=== PATIENT | male | born 1935 | race Caucasian/White ===

== ENCOUNTER → 2022-03-06 13:29 | Outpatient (BNVA) | payer MEDICARE, OTHER, SELFPAY | PROVIDERS: Family Provider Internal Medicine; PCP Urology; Visit Provider Podiatrist Foot & Ankle Surgery | DX: I73.9 Peripheral vascular disease, unspecified (principal); L60.8 Other nail disorders; L60.3 Nail dystrophy; L84 Corns and callosities | CPT/HCPCS: 11056; 11721; 99204 ==

== ENCOUNTER → 2022-04-13 15:14 | Outpatient (BNVA) | payer MEDICARE, OTHER, SELFPAY | PROVIDERS: Family Provider Internal Medicine; PCP Urology; Visit Provider Podiatrist Foot & Ankle Surgery | DX: L60.8 Other nail disorders (principal); L60.3 Nail dystrophy; I73.9 Peripheral vascular disease, unspecified; L84 Corns and callosities | CPT/HCPCS: 11721 ==

== ENCOUNTER → 2022-07-06 15:56 | Outpatient (BNVA) | payer MEDICARE, OTHER, SELFPAY | PROVIDERS: Family Provider Internal Medicine; PCP Urology; Visit Provider Podiatrist Foot & Ankle Surgery | DX: I73.9 Peripheral vascular disease, unspecified (principal); L60.8 Other nail disorders; L60.3 Nail dystrophy; L84 Corns and callosities | CPT/HCPCS: 11056; 11721 ==

== ENCOUNTER 2022-08-25 16:14 | Outpatient (CLI) | payer MEDICARE, OTHER, SELFPAY ==
--- NOTE | 2022-08-25 16:24 | XRR_ITS ---
PROCEDURE INFORMATION: Exam: XR Bilateral Hips Exam date and time: 08/25/2022 4:26 PM Age: 87 years old Clinical indication: Hip pain; Bilateral; Prior surgery; Surgery type: Bilat hip surgery; Patient HX: PT fell 3 months ago; Additional info: Pain in right and left hip TECHNIQUE: Imaging protocol: Radiologic exam of the bilateral hips. Views: 2 views of hips with pelvis when performed. COMPARISON: No relevant prior studies available. FINDINGS: Bones/joints: Bilateral total hip arthroplasties noted in expected alignment. No signs of hardware loosening. No acute fracture. Soft tissues: Unremarkable. XR/XR hip BI 3-4V wo/w pel [id number] IMPRESSION: No acute findings.
== END 2022-08-25 16:15 | disposition home or self-care (01) ==
LOC: RAD 16:18
PROVIDERS: PCP Urology; Visit Provider Nurse Practitioner Family
DX: M25.552 Pain in left hip (principal)
CPT/HCPCS: 73522

== ENCOUNTER → 2022-10-04 10:14 | Outpatient (BNVA) | payer MEDICARE, OTHER, SELFPAY | PROVIDERS: PCP Urology; Visit Provider Nurse Practitioner Family | DX: L30.4 Erythema intertrigo (principal); Z85.828 Personal history of other malignant neoplasm of skin; L57.0 Actinic keratosis; L82.0 Inflamed seborrheic keratosis; D23.72 Other benign neoplasm of skin of left lower limb, including hip; Z87.891 Personal history of nicotine dependence; L81.4 Other melanin hyperpigmentation; L85.3 Xerosis cutis | CPT/HCPCS: 11056; 11102; 11721; 17000; 17003; 99213 ==

== ENCOUNTER → 2022-12-06 13:05 | Outpatient (BNVA) | payer MEDICARE, OTHER, SELFPAY | PROVIDERS: PCP Urology; Visit Provider Podiatrist Foot & Ankle Surgery | DX: L60.8 Other nail disorders (principal); L60.3 Nail dystrophy; I73.9 Peripheral vascular disease, unspecified; L84 Corns and callosities | CPT/HCPCS: 11056; 11721 ==

== ENCOUNTER → 2023-02-05 10:43 | Outpatient (BNVA) | payer MEDICARE, OTHER, SELFPAY | PROVIDERS: PCP Nurse Practitioner Family; Visit Provider Nurse Practitioner Family | DX: L30.4 Erythema intertrigo (principal); D23.72 Other benign neoplasm of skin of left lower limb, including hip; L81.4 Other melanin hyperpigmentation; L85.3 Xerosis cutis; L57.0 Actinic keratosis | CPT/HCPCS: 17000; 99214 ==

== ENCOUNTER → 2023-02-07 12:07 | Outpatient (BNVA) | payer MEDICARE, OTHER, SELFPAY | PROVIDERS: PCP Nurse Practitioner Family; Visit Provider Podiatrist Foot & Ankle Surgery | DX: L60.8 Other nail disorders (principal); L60.3 Nail dystrophy; I73.9 Peripheral vascular disease, unspecified; L84 Corns and callosities | CPT/HCPCS: 11056; 11721 ==

== ENCOUNTER → 2023-05-09 12:57 | Outpatient (BNVA) | payer MEDICARE, OTHER, SELFPAY | PROVIDERS: PCP Nurse Practitioner Family; Visit Provider Podiatrist Foot & Ankle Surgery | DX: L60.3 Nail dystrophy (principal); I73.9 Peripheral vascular disease, unspecified; L84 Corns and callosities; L60.8 Other nail disorders | CPT/HCPCS: 11056; 11721 ==

== ENCOUNTER → 2023-06-18 07:48 | Outpatient (BNVA) | payer MEDICARE, SELFPAY | PROVIDERS: PCP Nurse Practitioner Family; Visit Provider Nurse Practitioner Family | DX: Z85.828 Personal history of other malignant neoplasm of skin (principal); L30.4 Erythema intertrigo; L57.0 Actinic keratosis; D23.72 Other benign neoplasm of skin of left lower limb, including hip; D22.5 Melanocytic nevi of trunk | CPT/HCPCS: 17000; 99213 ==

== ENCOUNTER → 2023-07-18 14:22 | Outpatient (BNVA) | payer MEDICARE, OTHER, SELFPAY | PROVIDERS: PCP Nurse Practitioner Family; Visit Provider Podiatrist Foot & Ankle Surgery | DX: L60.8 Other nail disorders (principal); L60.3 Nail dystrophy; I73.9 Peripheral vascular disease, unspecified; L84 Corns and callosities | CPT/HCPCS: 11056; 11721 ==

== ENCOUNTER 2023-10-05 11:01 | Emergency (ER) | payer MEDICARE, OTHER, SELFPAY ==
[2023-10-05 11:08] VITALS: BP 137/75; PULSE 71; RESP 18; O2SAT 96
--- NOTE | 2023-10-05 11:14 | CT_ITS ---
WS: [id number] CT CERVICAL SPINE HISTORY: fall TECHNIQUE: Contiguous 2.0 mm axial imaging performed through the entire cervical spine. Sagittal and coronal reformats also performed. All CT scans at [facility] use at least one of these dose o ptimization techniques: automated exposure control; mA and/or kV adjustment per patient size (include s targeted exams where dose is matched to clinical indication); or iterative reconstruction. DLP: 1631.38 mGy.cm COMPARISON: None available. Posterior cervical alignment is normal. Osteophytic ridging around the vertebral bodies. Clawlike ost eophytes anteriorly beginning at C4-T2. Partial ankylosis C2-3 facet joint. Facet joints are normally aligned. No fractures. C2-C3: Facet joint arthropathy. Mild LEFT foraminal narrowing. C3-C4: Osteophytic ridging. Severe bilateral foraminal stenosis, RIGHT greater than LEFT and facet ar thritis. Moderate central stenosis. C4-C5: Osteophytic ridging with facet joint arthritis. Moderate central with severe foraminal stenosi s. C5-C6: Marked osteophytic ridging and facet arthritis. Severe central and bilateral foraminal stenosi s. C6-C7: Marked osteophytic ridging with severe central and bilateral foraminal stenosis. C7-T1: Normal. Soft tissues are normal. Lung apices are clear. CT/CT cervical spin wo con* [id number] IMPRESSION: 1. No acute cervical spine fracture. 2. Advanced cervical spondylosis. 3. Multilevel central and foraminal stenoses as described above. Severe stenos is at several levels.
--- NOTE | 2023-10-05 11:14 | CT_ITS ---
WS: [id number] CT HEAD NONCONTRAST HISTORY: fall TECHNIQUE: Contiguous axial imaging performed through the brain in 2.5 mm imaging. Bone and soft tiss ue windows. Sagittal and coronal reformats reviewed. All CT scans at [facility] use at least one of these dose optimization techniques: automated exposure control; mA and/or kV adjustment per pa tient size (includes targeted exams where dose is matched to clinical indication); or iterative recon struction. DLP: 1631.38 mGy.cm COMPARISON: None available. No acute intracranial hemorrhage, midline shift or mass effect. Moderate symmetric atrophy and mild small vessel ischemic disease. No prior infarct. Ventricles: Normal size with no hydrocephalus. No inferior displacement of the cerebellar tonsils. Posterior fossa is negative for acute blood produ cts. Paranasal sinuses: As visualized are clear. Mastoid air cells: Well pneumatized. Calvarium and scalp: No calvarial fracture. Moderate-sized lipoma posterior to the RIGHT upper cervic al spine at the level of the foramen magnum. Lipoma measures 2.9 x 4.4 cm. No large mass identified. There is a small scalp hematoma towards the superior RIGHT parietal vertex. CT/CT head wo con* [id number] IMPRESSION: 1. No acute intracranial hemorrhage or edema. 2. Moderate atrophy and mild small vessel ischemic disease. 3. Small posterior RIGHT parietal scalp hematoma. 4. Subcutaneous lipoma on the RIGHT at the level of the foramen magnum.
--- NOTE | 2023-10-05 11:19 | ED_ITS ---
HPI - Fall General: Chief Complaint: Fall Stated Complaint: fall Time Seen by Provider: 10/05/23 11:07 Source: patient and EMS Mode of arrival: EMS Limitations: no limitations History of Present Illness: 88-year-old male states that he had been walking and slipped and fell backwards onto concrete he did hit the back of his head on concrete denies any loss conscious he does have a posterior headache currently and a hematoma. States he had some increased falls but he denies feeling weak denies any lightheadedness he denies any chest pain. Denies any other injuries Associated symptoms-after fall: Denies abdominal pain, chest pain, headache(s) or neck pain Review of Systems Const: Denies: fever(s), chills, body aches or change in appetite ENMT: Denies: throat pain or dental pain Card: Denies: chest pain Resp: Denies: dyspnea GI: Denies: abdominal pain, nausea, vomiting or diarrhea Musc: Denies: neck pain or back pain Skin/Breast: Denies: rash Neuro: Denies: headache(s) Physical Exam Const: COMMON NORMALS: no acute distress, patient oriented x3 and healthy appearing HENMT: COMMON NORMALS: normocephalic HEAD & SCALP: normocephalic OTHER: Posterior scalp hematoma Eye: COMMON NORMALS: Equal, round and reactive pupils present and EOMs intact bilaterally PUPIL: Yes Equal, round and reactive pupils present Neck/C-Spine: COMMON NORMALS: full ROM and supple Chest: COMMONS NORMALS: normal inspection of the chest Resp: COMMON NORMALS: normal respiratory effort, No retractions, No use of accessory muscles and clear to auscultation bilaterally AUSCULTATION: clear to auscultation bilaterally Cardio: COMMON NORMALS: regular rate, regular rhythm and No murmurs present (Cardio) RATE: regular rate RHYTHM: regular rhythm GI: COMMON NORMALS: Normal to inspection, nondistended, normoactive bowel sounds present, Soft to palpation, non-tender and no masses PALPATION: Yes Soft to palpation Extremity: COMMON NORMALS: normal to inspection and full ROM Neuro: COMMON NORMALS: patient oriented x3, moves all extremities and no focal motor deficits Psych: COMMON NORMALS: mental status grossly normal, Normal thought process present and cooperative THOUGHT PROCESS: Normal thought process present Skin: COMMON NORMALS: no rashes or lesions noted and no wounds GENERAL SKIN EXAM: no rashes or lesions noted Course Vital Signs: Vital signs: Vital Signs Pulse Rate 71 10/05/23 11:08 Respiratory Rate 18 10/05/23 11:08 Blood Pressure 137/75 10/05/23 11:08 Pulse Oximetry 96 10/05/23 11:08 Oxygen Delivery Me thod Room Air 10/05/23 11:08 MDM - Fall Medical Decision Making Patient presents here with a closed head injury after a fall his imaging here is normal he is able to ambulate here did inform him that he needs to start ambulating with a cane or walker likely to prevent future falls he understands this he states he actually has a cane and walker at home just does not use them much. Is follow-up with PCP and return if worsening. Medical Records I reviewed the patient's medical records. Lab Data Radiology Impressions Cervical Spine CT 10/05/23 11:14 IMPRESSION: 1. No acute cervical spine fracture. 2. Advanced cervical spondylosis. 3. Multilevel central and foraminal stenoses as described above. Severe stenosis at several levels. Head CT 10/05/23 11:14 IMPRESSION: 1. No acute intracranial hemorrhage or edema. 2. Moderate atrophy and mild small vessel ischemic disease. 3. Small posterior RIGHT parietal scalp hematoma. 4. Subcutaneous lipoma on the RIGHT at the level of the foramen magnum. All radiology interpretation(s) finalized by discharge Discharge Plan Discharge Patient Disposition: Home Clinical Impression: Closed head injury, Fall Condition: Stable Prescriptions: No Action mupirocin 2 % ointment 1 applic topical BID Qty: 22 1RF Rx Instructions: apply to affected area twice daily until healed ezetimibe 10 mg tablet PO Discharge Orders: Discharge ED (Routine); Ordered 10/05/23 Ordered By: Suma Milan Referrals: Joanie Billings FNP [Referring] - 4-7 days Discharge Diet: Advance as tolerated Discharge Activity: Resume usual activity Patient Instructions: Head Injury (ED), Fall Prevention (ED) Coding Level of Care Code ED Machine Mover for Leonela Gonzalez
[2023-10-05 12:47] VITALS: BP 140/74; PULSE 59; O2SAT 98
== END 2023-10-05 12:49 | disposition home or self-care (01) ==
PROVIDERS: Emergency Provider Emergency Medicine; PCP Nurse Practitioner Family
DX: S00.03XA Contusion of scalp, initial encounter (principal); W01.0XXA Fall on same level from slipping, tripping and stumbling without subsequent striking against object, initial encounter
CPT/HCPCS: 70450; 72125; 99284

== ENCOUNTER → 2023-10-17 11:17 | Outpatient (BNVA) | payer MEDICARE, OTHER, SELFPAY | PROVIDERS: PCP Nurse Practitioner Family; Visit Provider Podiatrist Foot & Ankle Surgery | DX: E11.8 Type 2 diabetes mellitus with unspecified complications (principal); L60.8 Other nail disorders; L60.3 Nail dystrophy; I73.9 Peripheral vascular disease, unspecified; L84 Corns and callosities | CPT/HCPCS: 11056; 11721 ==

== ENCOUNTER → 2024-01-30 10:43 | Outpatient (BNVA) | payer MEDICARE, OTHER, SELFPAY | PROVIDERS: PCP Nurse Practitioner Family; Visit Provider Podiatrist Foot & Ankle Surgery | DX: L60.8 Other nail disorders (principal); E11.8 Type 2 diabetes mellitus with unspecified complications; L60.3 Nail dystrophy; I73.9 Peripheral vascular disease, unspecified; L84 Corns and callosities | CPT/HCPCS: 11056; 11721 ==

== ENCOUNTER → 2024-04-28 11:00 | Outpatient (BNVA) | payer MEDICARE, OTHER, SELFPAY | PROVIDERS: PCP Nurse Practitioner Family; Visit Provider Podiatrist Foot & Ankle Surgery | DX: E11.8 Type 2 diabetes mellitus with unspecified complications (principal); L60.8 Other nail disorders; L60.3 Nail dystrophy; I73.9 Peripheral vascular disease, unspecified; L84 Corns and callosities | CPT/HCPCS: 11056; 11721 ==

== ENCOUNTER → 2024-06-04 15:00 | Outpatient (BNVA) | payer MEDICARE, OTHER, SELFPAY | PROVIDERS: PCP Nurse Practitioner Family; Visit Provider Nurse Practitioner Family | DX: L30.4 Erythema intertrigo (principal); D23.72 Other benign neoplasm of skin of left lower limb, including hip; L81.4 Other melanin hyperpigmentation; L85.3 Xerosis cutis; Z08 Encounter for follow-up examination after completed treatment for malignant neoplasm; Z85.828 Personal history of other malignant neoplasm of skin; L57.0 Actinic keratosis | CPT/HCPCS: 17000; 99213 ==

== ENCOUNTER → 2024-08-04 11:01 | Outpatient (BNVA) | payer MEDICARE, OTHER, SELFPAY | PROVIDERS: PCP Nurse Practitioner Family; Visit Provider Podiatrist Foot & Ankle Surgery | DX: E11.8 Type 2 diabetes mellitus with unspecified complications (principal); L60.8 Other nail disorders; L84 Corns and callosities; L60.3 Nail dystrophy; I73.9 Peripheral vascular disease, unspecified | CPT/HCPCS: 11056; 11721 ==

== ENCOUNTER 2024-09-11 06:57 | Emergency (ER) | payer OTHER, MEDICARE, SELFPAY ==
--- NOTE | 2024-09-11 07:01 | XR_ITS ---
WS: [id number] Right shoulder, 3 views, 09/11/2024 Clinical Data: trauma Comparison: Right shoulder, 08/23/1999 Findings: No fractures or dislocations are seen. The AC joint shows mild osteoarthritis. There is osteoarthritis of the right glenohumeral joint.. The adjacent right clavicle, right scapula and ribs are normal. The soft tissues are unremarkable. 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
[2024-09-11 07:48] VITALS: BP 146/61; PULSE 74; RESP 18; TEMP 36.7; O2SAT 96; BMI 27.1
[2024-09-11 08:11] VITALS: BP 145/75; O2SAT 98
--- NOTE | 2024-09-11 08:21 | W.ED.EXTPRO ---
HPI - Extremity Problem General: Chief complaint: Extremity Injury, Upper Stated complaint: fall/right shoulder pain Time Seen by Provider: 09/11/24 06:58 History of Present Illness: 81-year-old male presents emergency room complaining of right shoulder pain began after he slipped and fell on some water he did not strike his head there is no other injury. He is able to move the elbow and the wrist without pain he complains of shoulder pain with any movement at the shoulder is not able to pecan picker anything of any significant weight or hold with his arm extended. He denies any chest pain or shortness of breath Associated symptoms: Deny chest pain, fever(s) or rash Related Data Home Medications ?Medication ?Instructions ?Recorded ?Confirmed ezetimibe 10 mg tablet tab PO 03/06/22 08/04/24 Previous Rx's ?Medication ?Instructions ?Recorded mupirocin 2 % topical ointment 1 applic topical BID #22 grams 06/19/22 diclofenac sodium 75 mg 75 mg PO Q12H PRN pain #20 tabs 09/11/24 tablet,delayed release Allergies Allergy/AdvReac Type Severity Reaction Status Date / Time atorvastatin (From Lipitor) Allergy Unknown Verified 08/04/24 09:17 Review of Systems Const: Denies: fever(s) or chills Card: Denies: chest pain Resp: Denies: dyspnea GI: Denies: abdominal pain : Denies: dysuria, urinary frequency or urinary urgency Musc: Reports: joint pain; Denies: neck pain or back pain Skin/Breast: Denies: rash PFSH ED PFSH: Social History Smoking and tobacco/nicotine status: never used tobacco/nicotine Physical Exam Const: COMMON NORMALS: no acute distress GENERAL APPEARANCE: cooperative and comfortable ORIENTATION/CONSCIOUSNESS: Yes awake, Yes oriented to person, Yes oriented to place and Yes oriented to time HENMT: COMMON NORMALS: normocephalic, atraumatic and hearing grossly normal bilaterally HEAD & SCALP: normocephalic and atraumatic Resp: COMMON NORMALS: normal respiratory effort, No retractions, No use of accessory muscles and clear to auscultation bilaterally AUSCULTATION: clear to auscultation bilaterally Cardio: COMMON NORMALS: regular rate, regular rhythm and No murmurs present (Cardio) RATE: regular rate RHYTHM: regular rhythm GI: COMMON NORMALS: Soft to palpation and No hepatosplenomegaly present AUSCULTATION: Yes normoactive bowel sounds PALPATION: Yes Soft to palpation, No Tenderness to palpation present (GI), No Guarding due to palpation present (GI) and Yes No hepatosplenomegaly present Extremity: COMMON NORMALS: normal to inspection, capillary refill normal, no clubbing, cyanosis or edema, no calf tenderness and no pedal edema OTHER: Positive impingement sign neurovascular the right arm is intact no pain with range of motion of the shoulder or the wrist. Pain reproducible with attempted range of motion of the shoulder mildly positive impingement sign pain with abduction and extension Neuro: SENSORIUM/ORIENTATION: Yes oriented to person, Yes oriented to place and Yes oriented to time Skin: COMMON NORMALS: no rashes or lesions noted GENERAL SKIN EXAM: no rashes or lesions noted Course Vital Signs: Vital signs: Vital Signs Temperature 98.1 F 09/11/24 07:48 Pulse Rate 65 09/11/24 08:55 Respiratory Rate 18 09/11/24 07:48 Blood Pressure 154/64 09/11/24 08:55 Pulse Oximetry 92 09/11/24 08:55 Oxygen Delivery Me thod Room Air 09/11/24 08:11 MDM - Extremity (Nontraumatic) Medical Decision Making Shoulder sprain he could have a rotator cuff impairment however he is in a movement without abduction I do not think he has a traumatic rotator cuff tear at this point suspect more partial or possible just sprain. 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 All radiology interpretation(s) finalized by discharge Discharge Plan Discharge Patient Disposition: Home Clinical Impression: Sprain of right shoulder Condition: Stable Prescriptions: New diclofenac sodium 75 mg tablet,delayed release (DR/EC) 75 mg PO Q12H PRN (Reason: pain) Qty: 20 0RF No Action mupirocin 2 % ointment 1 applic topical BID Qty: 22 1RF Rx Instructions: apply to affected area twice daily until healed ezetimibe 10 mg tablet PO Discharge Orders: Discharge ED (Routine); Ordered 09/11/24 Ordered By: Donny Lyons Referrals: Linda Celis FNP [Primary Care Provider] Discharge Diet: Usual diet Discharge Activity: Limit activity as instructed Patient Instructions: Opioid Safety, Pain Management Activity Restrictions/Additional Instructions: Thank you for choosing [facility] for your healthcare needs today. It is very important that you follow up as instructed or that you return to the Emergency Department should you have concerns or if your condition changes or worsens in any way. You were seen in the emergency room with complaints of right shoulder pain after a fall x-ray does not show any acute fracture. Recommend use of diclofenac as needed also use the arm sling case loader operator will make arrangements for you to follow-up with orthopedic clinic. Print Language: Ugandan Coding Level of Care Code ED Breakfast Host for Leonela Gonzalez
[2024-09-11] MEDS: ketorolac 30 mg/mL INJ IVP (08:49)
[2024-09-11 08:55] VITALS: BP 154/64; PULSE 65; O2SAT 92
--- NOTE | 2024-09-11 11:37 | DCPLANNER ---
messaged ortho for er f/u
== END 2024-09-11 08:56 | disposition home or self-care (01) ==
PROVIDERS: Emergency Provider Family Medicine; PCP Nurse Practitioner Family
DX: S43.401A Unspecified sprain of right shoulder joint, initial encounter (principal); W19.XXXA Unspecified fall, initial encounter
CPT/HCPCS: 73030; 96374; 99284; J1885

== ENCOUNTER → 2024-11-03 10:53 | Outpatient (BNVA) | payer MEDICARE, SELFPAY | PROVIDERS: PCP Nurse Practitioner Family; Visit Provider Podiatrist Foot & Ankle Surgery | DX: E11.8 Type 2 diabetes mellitus with unspecified complications (principal); L60.3 Nail dystrophy; L84 Corns and callosities; L60.8 Other nail disorders; I73.9 Peripheral vascular disease, unspecified | CPT/HCPCS: 11056; 11721 ==

== ENCOUNTER 2025-01-12 11:48 | Emergency (ER) | payer OTHER, SELFPAY ==
--- OUTSIDE RECORDS SUMMARY | 2024-10-01 04:30 | XMS_ITS | Encounter Summary ---
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 This section includes the names of all active insurance providers for the patient. Insurance Provider Type of Coverage Plan Name Start of Policy Coverage End of Policy Coverage Group Number Member ID Insurance Provider's Telephone Number Policy Holguin's Name Patient's Relationship to Policy Holguin [facility] (WNR) MEDICARE ADVANTAGE [facility] (WNR) May 14, 2023 [id number] Williams ROLON PATIENT MEDICARE (WNR) MEDICARE (M) PART A Jun 14, 2001 PART A [id number] [phone] Williams ROLON PATIENT MEDICARE (WNR) MEDICARE (M) PART B Jun 14, 2001 PART B [id number] Williams ROLON PATIENT Selected Encounter This section includes the information on record at [place] for the Encounter. Date/Time Encounter Type Encounter Description Reason Provider Source October 01, 2024 09:30 AM Outpatient Encounter PRIMARY CARE/MEDICINE ICD-10-CM Z00.00 Encntr for general adult medical exam w/o abnormal findings RAFFY MAYORGA E Encounter Template Text not used by [place] Assessments - Encounter Diagnoses This section includes the primary and secondary diagnoses documented for the Encounter. Date/Time Primary/Secondary Diagnosis Diagnosis Name Provider Source Oct 15, 2024 09:12 PM PRIMARY Encntr for general adult medical exam w/o abnormal findings MAYORGARAFFY [place] [facility] Oct 15, 2024 09:12 PM SECONDARY Hyperlipidemia, unspecified RAFFY MAYORGAS [place] [facility] Oct 15, 2024 09:12 PM SECONDARY Low back pain, unspecified RAFFY MAYORGAS [place] [facility] Oct 15, 2024 09:12 PM SECONDARY Other abnormalities of gait and mobility RAFFY MAYORGAS [place] [facility] Oct 15, 2024 09:12 PM SECONDARY Prediabetes MAYORGARAFFY [facility] Plan of Treatment: Future Appointments (+ 6 months) and Future Tests (+/- 45 days) The Plan of Treatment section includes future care activities for the patient [facility] This section includes future appointments and future orders which are active, pending or scheduled. Future Appointments This section includes appointments that were scheduled to occur 6 months from the date of the Encounter, up to a maximum of 20 appointments. The data comes from all [place] treatment facilities. Appointment Date/Time Appointment Type Appointme nt Facility Name Oct 20, 2024 10:15 AM AMBULATORY - MEDICINE [facility] Oct 29, 2024 02:00 PM AMBULATORY - MEDICINE [facility] Dec 25, 2024 10:15 AM [facility] Lab Results: +/- 30 days of the encounter This section includes the Chemistry and Hematology Lab Results on record with [place] for the patient. Radiology Reports and Pathology Reports are provided separately, in subsequent sections. Lab Results This section contains the Chemistry/Hematology Results that were resulted 30 days before or 30 daysafter the date of the Encounter. Date/Time Source Result Type Result - Unit Interpretation Reference Range Specimen Type Comment October 01, 2024 10:14 AM [facility] CBC BLOOD Specimen Type: BLOOD No comment entered. Ordering Provider: PAPA MAYORGA Report Released Date/Time: October 01, 2024 09:06 AM Reporting Lab: [facility] [place] [facility] [address] [place] [address] Performing Lab: [facility] [address] [place] [address] WBC 7.2 10*3/uL 3.6-11.2 RBC 4.90 10*6/uL 4.10-5.70 HGB 13.7 g/dL 13.1-16.8 HCT 42.8 38.2-48.4 MCV 87.3 fL 80.0-100.0 MCH 28.0 pg 27.0-34.0 MCHC 32.0 g/dL L 33.0-36.0 PLT 380 10*3/uL 150-400 MPV 10.7 fL 7.5-11.2 RDW 14.8 11.8-15.1 LYMPHOCYTES, AUTO % 20.8 MONOCYTES, AUTO % 10.6 NEUTROPHILS, AUTO % 66.4 EOSINOPHILS, AUTO % 1.1 BASOPHILS, AUTO % 0.8 LYMPHOCYTES, ABSOLUTE 1.49 10*3/uL 0.77- 4.50 MONOCYTES, ABSOLUTE 0.76 10*3/uL 0.19-0. 8 NEUTROPHILS, ABSOLUTE 4.74 10*3/uL 2.10- 8.00 EOSINOPHILS, ABSOLUTE 0.08 10*3/uL 0.00- 0.60 BASOPHILS, ABSOLUTE 0.06 10*3/uL 0.00-0. 20 IMMATURE GRANS, AUTO % 0.3 IMMATURE GRANS, AUTO ABS 0.02 10*3/uL 0. 00-0.05 October 01, 2024 10:14 AM [facility] COMPREHENSIVE METABOLIC PANEL PLASMA Specimen Type: PLASMA No comment entered. Ordering Provider: PAPA MAYORGA Report Released Date/Time: October 01, 2024 09:06 AM Reporting Lab: [facility] [facility] [address] [place] [address] Performing Lab: [facility] [facility] [address] [place] [address] CREATININE 0.85 mg/dL 0.7-1.3 UREA NITROGEN 18 mg/dL 9-25 GLUCOSE 105 mg/dL H 72-99 SODIUM 140 meq/L 136-145 POTASSIUM 4.3 meq/L 3.5-5 CHLORIDE 106 meq/L 98-107 CARBON DIOXIDE 25 meq/L 22-31 CALCIUM 9.5 mg/dL 8.4-10.4 PROTEIN 7.1 g/dL 6-8.6 ALBUMIN 4.3 g/dL 3.4-5 TOTAL BILIRUBIN 0.6 mg/dL 0.2-1.2 ALKALINE PHOSPHATASE 73 U/L 40-150 AST/SGOT 26 U/L 5-34 ALT/SGPT 16 U/L 8-40 EGFR (CKD-EPI 2020) 84 October 01, 2024 10:14 AM [facility] B12 SERUM Specimen Type: SERUM No comment entered. Ordering Provider: PAPA MAYORGA Report Released Date/Time: October 01, 2024 09:06 AM Reporting Lab: [place] [facility] [address] [place] [address] Performing Lab: [place] [facility] [address] [place] [address] B12 521 pg/mL 213-816 October 01, 2024 10:14 AM [facility] FOLATE (PB) SERUM Specimen Typ e: SERUM No comment entered. Ordering Provider: PAPA MAYORGA Report Released Date/Time: October 01, 2024 09:06 AM Reporting Lab: [place] [facility] [address] [place] [address] Performing Lab: [place] [facility] [address] [place] [address] FOLATE (PB) 12.6 ng/mL 7-20 October 01, 2024 10:14 AM [facility] HGA1C BLOOD Specimen Type: BLOOD No comment entered. Ordering Provider: PAPA MAYORGA Report Released Date/Time: October 01, 2024 09:06 AM Reporting Lab: [place] [facility] [address] [place] [address] Performing Lab: [place] [facility] [address] [place] [address] HGA1C 6.6 H 4.0-6.0 October 01, 2024 10:14 AM [facility] CHOLESTEROL PANEL (PB) PLASMA Specimen Type: P LASMA No comment entered. Ordering Provider: PAPA MAYORGA Report Released Date/Time: October 01, 2024 09:06 AM Reporting Lab: [place] [facility] [address] [place] [address] Performing Lab: [place] [facility] [address] [place] [address] CHOLESTEROL 247 mg/dL H 0-200 TRIGLYCERIDE 89 mg/dL 0-150 CALCULATED LDL 146.2 mg/dL HDL(New) 83.0 mg/dL H >40 HDL % OF TOTAL CHOLESTEROL (PB) 33.6 >25 October 01, 2024 10:14 AM [facility] VITAMIN D, 25-HYDROXY SERUM Specimen Type: SE RUM No comment entered. Ordering Provider: PAPA MAYORGA Report Released Date/Time: October 01, 2024 09:06 AM Reporting Lab: [place] [facility] [address] [place] [address] Performing Lab: [place] [facility] [address] [place] [address] VITAMIN D, 25-HYDROXY 30.3 ng/mL 30-96 October 01, 2024 10:14 AM [facility] TSH (MA-PB) SERUM Specimen Typ e: SERUM No comment entered. Ordering Provider: PAPA MAYORGA Report Released Date/Time: October 01, 2024 09:06 AM Reporting Lab: [place] [facility] [address] [place] [address] Performing Lab: [place] [facility] [address] [place] [address] TSH 2.132 u[IU]/mL 0.47-5 Vital Signs: All taken on the encounter date This section contains inpatient and outpatient Vital Signs collected on the date of the Encounter. Date/Time Temperature Pulse Blood Pressure Respiratory Rate SP02 Pain Height Weight Body Mass Index Source October 01, 2024 09:36 AM 71 133/78 97 [facility] October 01, 2024 09:24 AM 75 172/77 16 97 0 71.0 187.0 26 [facility] Social History: Smoking Status (Most current) and Tobacco Use (All prior to encounter date) This section includes the most current, and the historical, smoking and tobacco- related health factors from the [place] facility where the Encounter took place. Current Smoking Status This section includes the most current smoking, or tobacco-related health factor, from the [place] facility where the Encounter took place. Date/Time Current Smoking Status Comment Jeanette dow October 01, 2024 09:30 AM VA-TOBACCO USE FORMER CIGARETTES [facility] Tobacco Use History This section includes a history of the smoking, or tobacco-related health factors, that were collected on or before the date of the Encounter. The data comes from the [place] facility where the Encounter took place. Date/Time Smoking Status/Tobacco Use Comment F acdelano October 01, 2024 09:30 AM VA-TOBACCO USE FORMER CIGARETTES [facility] October 03, 2023 11:00 AM VA-TOBACCO FORMER USER [facility] October 03, 2023 11:00 AM VA-TOBACCO QUIT 15 YRS OR MORE [facility] Feb 03, 2015 02:04 PM QUIT TOBACCO >7 YEARS AGO [facility] Encounter Notes: All associated encounter notes This section contains the clinical notes associated to the Encounter. Date/Time Encounter Note(s) Provider Source Oct 17, 2024 03:15 PM TELEPHONE ENCOUNTE R NOTE: LOCAL TITLE: TELEPHONE NOTE STANDARD TITLE: TELEPHONE ENCOUNTER NOTE DATE OF NOTE: OCT 17, 2024@15:15 ENTRY DATE: OCT 17, 2024@15:15:43 AUTHOR: THEA VICK EXP COSIGNER: URGENCY: STATUS: COMPLETED Called and reviewed Test Result letter. voiced understanding. [place] would like his Cholesterol Medicine from the [place]. /kadi/ THEA VICK LPN Signed: 10/17/2024 15:17 Receipt Acknowledged By: 10/18/2024 15:20 /kadi/ Papa Mayorga [facility], [facility] THEA VICK [facility] October 01, 2024 09:47 AM PRIMARY CARE PROGR ESS NOTE: LOCAL TITLE: PRIMARY CARE CLINIC PROGRESS NOTE PB STANDARD TITLE: PRIMARY CARE PROGRESS NOTE DATE OF NOTE: OCTOBER 01, 2024@09:47 ENTRY DATE: OCTOBER 01, 2024@09:47:10 AUTHOR: PAPA MAYORGAER: URGENCY: STATUS: COMPLETED PROVIDER ASSESSMENT DATE & TIME:September@09:47 CHIEF COMPLAINT: Annual physical and labs. HISTORY OF PRESENT ILLNESS: is being seen for his annual physical and labs. needs large brief depends ordered. has been having some gait imbalance and needs some physical therapy ordered. He would like some medication for his arthritis and we will order some celebrex. He denies any home needs. He has not had any hospitalizations. 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 Indication: FOR OSTEOARTHRITIS Active Non-VA Medications Status 1) Non-VA FINASTERIDE 5MG TAB 5MG BY MOUTH ONCE A DAY ACTIVE 2) Non-VA TAMSULOSIN HCL 0.4MG CAP 0.4MG BY MOUTH ONCE A DAY ACTIVE 3 Total Medications REVIEW OF SYSTEMS: HEENT: No Headache. No blurry vision, vision loss, eye pain, red eyes, or foreign body. No runnynose, congestion, or nose bleed. No hearing loss, ringing in the ears, or vertigo. No sore throat or dental pain. RESPIRATORY: No cough, SOA, wheezing, or sputum production. CARDIOVASCULAR: No chest pain, palpitations, tachycardia, PND, or orthopnea. GI: No abdominal pain, nausea, vomiting, diarrhea, constipation, melena, or hematochezia. : No dysuria, hematuria, urinary frequency, weak stream, or post-void dribbling. MUSCULOSKELETAL: chronic joint pain. SKIN: No rash, lesions, or infection PSYCH: No Depression or Anxiety. Not suicidal. PHYSICAL ASSESSMENT: VITAL SIGNS Pulse: 71 (10/01/2024 09:36) Blood Pressure: 133/78 (10/01/2024 09:36) Respiratory Rate: 16 (10/01/2024 09:24) Temperature: 97.5 F [36.4 C] (10/03/2023 11:25) Weight: 187.0 lb [84.82 kg] (10/01/2024 09:24) Height: 71.0 in [180.3 cm] (10/01/2024 09:24) Pain: 0 (10/01/2024 09:24) HEENT:PERRL, EOMI, Fundi benign, TM's clear, Pharynx not red and without exudate, tonsils normal size. NECK: Supple, no lymhadenopathy, thyroid normal. CARDIAC: Regular rate and rhythm without murmur. No edema. RESPIRATORY: CTA, BEBS GI: Abdomen soft,with ABS, no HSM, no guarding or rebound. MUSCULOSKELETAL:Chronic diffuse joint pain with wide based gait. SKIN: [place] without rash or lesions. NEUROLOGICAL: The [place] is alert and oriented without distress. Affect appropriate. IMPRESSION: Encounter for General Adult Medical Exam Osteoarthritis-chronic Low Back Pain-chronic Hyperlipidemia-chronic Prediabetes-current PLAN: Increase water intake. Continue current medications. Depends ordered. Physical therapy ordered. Fall precautions discussed. RTC in one year or sooner if needed. Patient is advised this primary care clinic has open access and he can make a same day appointment anytime a problem/concern arises. Patient further advised he can be seen on a walk-in basis as needed. Patient is provided clinic contact information. Medications reviewed and reconciled. Discussed diet and exercise as relevant to patient conditions. Treatment plan as noted above and the After Visit Summary was reviewed with [place]; opportunity provided to report concerns and ask question regarding aspects of care or treatment or services; concurrence reached and verbalized understanding. Please refer to addendum or follow up lab letter for plan of care/changes related to lab/test results not available at conclusion of appointment, if any. Discussed with patient that in the event of community imaging / testing being ordered in the future, once the imaging / testing has been completed, please notify PACT of within 1 week by a [facility] PACT member; this is due to intermittent lapses in notification of imaging completion within CPRS. All questions answered; agrees to plan of care. Follow up as listed above, annually, and as needed. Keep all completion at outside facility if not called with results appointments. Medications Reconciled. Time spent 30 minutes. /kadi/ [facility] Signed: 10/15/2024 21:11 [facility]GA [facility] October 01, 2024 09:15 AM PRIMARY CARE NURSI NG NOTE: LOCAL TITLE: PRIMARY CARE NURSING PROGRESS NOTE (TEXT) NURSING P STANDARD TITLE: PRIMARY CARE NURSING NOTE DATE OF NOTE: OCTOBER 01, 2024@09:15 ENTRY DATE: OCTOBER 01, 2024@09:15:58 AUTHOR: THEA VICK COSIGNER: URGENCY: STATUS: COMPLETED Established Patient SRIRAM ROLON IS A 89 YEAR OLD MALE BEING SEEN IN CLINIC OCTOBER 01, 2024. == == REASON FOR VISIT: here today for annual appt with provider. Are you receiving care any where other than the [facility]? Yes, List: [facility] HEALTH AND SURGICAL HISTORY: Does patient report using home oxygen? No CURRENT ACTIVE MEDICATIONS FOR REVIEW: If the list for review does not include a component, then it was not applicable to this patient. Allergies/ADRs (Tool #5) FACILITY ALLERGY/ADR -------- No Remote Allergy/ADR Data available for this patient [facility] Med. Reconciliation (Tool #1) INCLUDED IN THIS LIST: Alphabetical list of active outpatient prescriptions dispensed from this VA (local) and dispensed from another VA or [facility] facility (remote) as well as inpatient orders (local pending and active), local clinic medications, locally documented non-VA medications, and local prescriptions that have or been discontinued in the past 90 days. Non-VA Meds Last Documented On: Feb 03, 2015 NOTE The display of VA prescriptions dispensed from another [place] or [facility] facility (remote) is limited to active outpatient prescription entries matched to National Drug File at the originating site and may not include some items such as investigational drugs, compounds, etc. NOT INCLUDED IN THIS LIST: Medications self-entered by the patient into personal health records (i.e. [employer]) are NOT included in this list. Non-VA medications documented outside this [place], remote inpatient orders (regardless of status) and remote clinic medications are NOT included in this list. The patient and provider must always discuss medications the patient is taking, regardless of where the medication was dispensed or obtained. OUTPT CELECOXIB 100MG CAP (Status = Active) TAKE ONE CAPSULE BY MOUTH ONCE A DAY FOR OSTEOARTHRITIS TAKE WITH FOOD. Rx# [id number] Last Released: 10/10/23 Qty/Days Supply: Rx Expiration Date: 10/06/24 Refills Remainin Indication: FOR OSTEOARTHRITIS Non-VA FINASTERIDE 5MG TAB TAKE ONE TABLET BY MOUTH ONCE A DAY Non-VA medication recommended by VA provider. Medication prescribed by Non-VA provider. Non-VA TAMSULOSIN HCL 0.4MG CAP TAKE 1 CAPSULE BY MOUTH ONCE A DAY Non-VA medication recommended by VA provider. Medication prescribed by Non-VA provider. SUPPLIES PHARMACY TERMS AND POSSIBLE PATIENT ACTIONS INPT = [place] inpatient order IV = [place] intravenous medication OUTPT = [place] outpatient prescription PHARMACY POSSIBLE PATIENT TERMS EXPLANATION ACTIONS -------- ----- ACTIVE A prescription that can be If you have refills, filled at the local [place] pharmacy. you may request a refill of this prescription from your VA pharmacy. CLINIC A medication you received during If you have questions a visit to a [place] clinic or about this medication emergency department. contact your [place] healthcare team. DISCONTINUED A prescription your provider has Contact your VA stopped. It is no longer healthcare team if you available to be sent to you or need more of this picked up at the [place] pharmacy medication. window. A prescription which is too old Contact your VA to fill. This does not refer to healthcare team if you the expiration date of the need more of this medication in the container. medication. NON-VA A medication that came from If this medication someplace other than a VA information is pharmacy. This may be a incorrect or out of prescription from either the VA date, please tell your or non VA providers that was VA healthcare team. filled outside the VA. Or, it may be an uayf-aiu-rldbeqi (OTC), herbal, dietary supplements or sample medication. ON HOLD An active prescription that will Contact your VA not be filled until pharmacy pharmacy when you need resolves the issue. more of this medication. PARKED An active prescription that will Contact your VA not be filled until the patient pharmacy when you need requests it. this medication. PENDING This prescription order has been If you have been sent to the pharmacy for review instructed to start and is not ready yet. this medication now, contact your VA pharmacy. SUSPENDED An active prescription that is Contact your [place] not scheduled to be filled yet. pharmacy if you need You should receive it before this medication now. you run out. Medication list reviewed with Patient Patient/Caregiver reports taking medications as ordered. IS PATIENT TAKING ANY OVER THE COUNTER MEDICATIONS, SUCH VITAMINS OR HERBAL SUPPLEMENTS, INCLUDING ANY MEDICATIONS PRESCRIBED BY ANOTHER PHYSICIAN? No Does patient have any new allergies to report since last visit? NO VITALS: TEMPERATURE: 97.5 F [36.4 C] (10/03/2023 11:25) BP: 144/76 (10/03/2023 11:) RESP: 18 (10/03/2023:) PULSE: 67 (10/03/2023:) HT: 71.0 in [180.3 cm] (10/03/2023 11:15) WT: 193.3 lb [87.68 kg] (10/03/2023:) BMI: 27.0 PAIN ASSESSMENT: (Most Recent Pain Score in Vitals Package: 0 (04/12/2021 13:18) ) The patient indicated that they and their close contacts have not traveled outside of the [place] in the past 21 days. The patient reports the following symptoms: No symptoms present The patient is not immunocompromised. The patient does not report having a history of Multi Drug Resistant Organism (MDRO) within the last five years. The patient does not report having been exposed to measles, chickenpox, or zoster in last 30 days. Patient reports no pain at this visit. Pain Score = 0. STRESS: Thank you for your service. Now let us serve you. At the , we strive to provide you with exceptional health care that improves your health and well-being. Are you feeling sad, empty, or depressed? No Do you need to talk about things in your life that worry you or cause you stress? No Do you need to talk about personal problems, family problems, alcohol use, drug use, or mental or emotional illness? No SUICIDE SCREENING: The patient was asked, Over the past two weeks, how often have you been bothered by thoughts that you would be better off or of hurting yourself in some way? Not At All SPIRITUAL ASSESSMENT: Are there tenriism practices or spiritual concerns you want the hot mill tin roller, your physician, and other health care team members to immediately know about? No Patient advised to call the clinic for any concerns, questions, or symptoms. Patient and/or caregiver verbalized understanding of plan of care. Frail/Elderly Screen: ADL Screen - Dorsey Index of [place] in Activities of Daily Living Bathing: (3 Points) Receives no assistance (gets in and out of tub by self, if tub is usual means of bathing) Dressing: (3 Points) Gets clothes and gets completely dressed without assistance. Toileting: (3 Points) Goes to toilet room , cleans self, and arranges clothes without assistance (may use object for support such as cane, walker, or wheelchair, and may manage own night bedpan or commode, emptying same next morning) Transferring: (3 Points) Moves in and out of bed and in and out of chair without assistance (may be using object for support, such as cane or walker) Continence: (2 Points) Has occasional accidents or urination or bowels Feeding: (3 Points) Feeds self without assistance Total Score: 17 Points 18 = High (patient independent) 6 = Low (patient very dependent) IADL Screen - [place] Instrumental Activities of Daily Living Scale Ability to use telephone: (1 point) Operates Telephone on own initiative; looks up and dials numbers. Shopping: (0 points) Shops independently for small purchases. Food preparation: (0 points) Prepares adequate meals if supplied with ingredients. Housekeeping: (1 points) Needs help with all home maintenance tasks. Laundry: (1 point) Launders small items, rinses socks, stockings, etc. Mode of transportation: (1 point) Travels independently on public transportation or drives own car. Responsibility for own medications: (1 point) Is responsible for taking medications in correct dosages at correct times. Ability to handle finances: (1 point) Manages financial matters independently (budgets, writes checks, pays rent and bills, goes to bank); collects and keeps track of income. Total score: 6 points 8 = High function, independent 0 = Low function, dependent Falls Screen: At least one fall with injury requiring treatment (in ED or clinic visit) within the last 12 months. Incontinence Screen: YES - Incontinence is a problem for this patient. Is urinary incontinence NEW for this patient? NO - Incontinence is NOT a new problem. What is the current treatment? Frequent bathroom visit. Will speak with non va provider about medications. Suicide Screen - V: C-SSRS Screening [place] Suicide Severity Rating Scale (C-SSRS) screener 1. Over the past month, have you wished you were or wished you could go to sleep and not wake up? No 2. Over the past month, have you had any actual thoughts of killing yourself? No 3. Over the past month, have you been thinking about how you might do this? Response not required due to responses to other questions. 4. Over the past month, have you had these thoughts and had some intention of acting on them? Response not required due to responses to other questions. 5. Over the past month, have you started to work out or worked out the details of how to kill yourself? Response not required due to responses to other questions. 6. If yes, at any time in the past month did you intend to carry out this plan? Response not required due to responses to other questions. 7. In your lifetime, have you ever done anything, started to do anything, or prepared to do anything to end your life (for example, collected pills, obtained a gun, gave away valuables, went to the roof but didn't jump)? No 8. If YES, was this within the past 3 months? Response not required due to responses to other questions. FALL RISK OP PB: MARINA FALL RISK ASSESSMENT Have you experienced any falls within the last 12 months: 10 = Yes Secondary Dx: 5 = Yes Secondary Dx Ambulatory Aid: 5 = Crutches/Walker/Cane Gait/Transferrin = Weak Mental status: 0 = Oriented to own ability Medications: 5 = High risk meds TOTAL SCORE: 30 Score 30 or higher - patient IS at risk for falls. The following actions taken: Family/career and technology education teacher advised to stay with patient during appointment. Patient had safety/home/falls education at this encounter. Fall Documentation Yes - Patient experienced a fall within the last year. Type of fall that occurred: At least one fall with injury requiring treatment (any fall for which a patient seeks medical attention, i.e., a visit (usually to clinic or ED)) Sexual Orientation - CP,L,N,P,PH,PS,S,U: The patient thinks of their sexual orientation as: Straight or Heterosexual RHS Screen - VS: RHS Screen Session Format: Face to Face Environmental Check Screening was not completed at this time due to: Another adult present Alcohol Use Screen (AUDIT-C) - V: Alcohol Screen: SCREEN FOR ALCOHOL (AUDIT-C) An alcohol screening test (AUDIT-C) was negative (score=0). 1. How often did you have a drink containing alcohol in the past year? Consider a drink to be a 12 ounce can or bottle of regular beer, 8 ounces of malt liquor, a 5 ounce glass of table wine, or a 1.5 ounce shot of liquor (like scotch, gin, or vodka). Never 2. How many drinks containing alcohol did you have on a typical day when you were drinking in the past year? Response not required due to responses to other questions. 3. How often did you have six or more drinks on one occasion in the past year? Response not required due to responses to other questions. Tobacco Use Screening - AT,DE,L,M,N,P,PH,PS,RT,S,U: The patient is a former cigarette smoker. The patient has never used other types of tobacco. Depression Screening - V: Perform PHQ-2 A PHQ-2 screen was performed. The score was 0 which is a negative screen for depression. Over the past two weeks, how often have you been bothered by the following problems? 1. Little interest or pleasure in doing things Not at all 2. Feeling down, depressed, or hopeless Not at all Advanced Directive Screen/Hand Cigar Making Supervisor: ADVANCE DIRECTIVE SCREENING: I asked if the patient has an advance directive, and determined that: Patient has an Advance Directive. Patient does not wish to make any changes to the Advance Directive at this time. ADVANCE DIRECTIVE NOTIFICATION I provided the patient with written notification about advance directives. Level of understanding: PTSD Screening - V: PC-PTSD-5 A PTSD screening test (PC-PTSD-5) was negative (score=0). IN THE PAST MONTH, have you ever had any experience that was so frightening, horrible or traumatic. For example: A serious accident or fire a physical or sexual assault or abuse An earthquake or flood A war Seeing someone be killed or seriously injured Having a loved one through homicide or suicide 1. Have you ever experienced this kind of event? YES 2. Had nightmares about the event(s) or thought about the event(s) when you did not want to? NO 3. Tried hard not to think about the event(s) or went out of your way to avoid situations that reminded you of the event(s)? NO 4. Been constantly on guard, watchful, or easily startled? NO 5. Ewing numb or detached from people, activities, or your surroundings? NO 6. Ewing guilty or unable to stop blaming yourself or others for the event(s) or any problems the event(s) may have caused? NO Pain Assessment: - PAIN ASSESSMENT: .. Patient reports no pain at this visit. Pain Score = 0. Patient's self identified pain goal: 0 [facility] DIGITAL DIVIDE CAPABILITY REMINDER: Patient is not interested in [facility] at this time. 'S RIGHT TO DECLINE STATEMENT understands they have the right to decline the use of Telehealth Technology at any time without adverse affects on their continued access to healthcare. [facility] - PHP MAP: PERSONAL HEALTH PLAN INVENTORY & MAP [place]'s Response: Health, Family /es/ THEA VICK LPN Signed: 10/01/2024 09:35 THEA VICK [facility]
--- OUTSIDE RECORDS SUMMARY | 2025-01-12 06:56 | XMS_ITS | Continuity of Care Document ---
Author Name [facility] Organization [facility] Care Team Providers Care Night Assistant Name Role Phone [facility] Unavailable Unavailable Problems Combined list of problems from [facility] facilities. It does not include entries that were removed or entered in error. 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 [facility] Hyperlipidemia ([facility] [id number]) Active Condition [facility] Low Back Pain ([facility] [id number]) Active Condition [facility] Osteoarthritis of hip Active Condition [place] [facility] Prediabetes Active Condition [facility] Diagnosis: ICD-10-CM Z71.89 Other specified counseling Active Diagnosis [facility] Diagnosis: ICD-10-CM Z00.00 Encntr for general adult medical exam w/o abnormal findings Active Diagnosis [facility] Medications Combined list of outpatient medications from [facility] and [facility] facilities.Medications provided include 1) outpatient medications from the last 15 months, and 2) patient-reported medications. Medication Details Route Status Patient Instructions Prescription Expires Prescription Number Last Dispense Date Ordering Provider Order Date Order Qty Source CELECOXIB 100MG CAP TAKE ONE CAPSULE BY MOUTH ONCE A DAY FOR OSTEOART HRITIS TAKE WITH FOOD. ORAL ACTIVE 10/02/2025 [id number] Marivel MAYORGA R 2024 90 [facility] EZETIMIBE 10MG TAB TAKE ONE-HALF TABLET BY MOUTH ONCE A DAY FOR HIGH CHOLESTE ROL ORAL ACTIVE 10/19/2025 [id number] Marivel MAYORGA R 2024 45 [facility] FINASTERIDE 5MG TAB TAKE ONE TABLET BY MOUTH ONCE A DAY ORAL ACTIVE ELIAZAR DARLING 2014 [facility] TAMSULOSIN HCL 0.4MG CAP TAKE 1 CAPSULE BY MOUTH ONCE A DAY ORAL ACTIVE ANITHANEVAEHELIAZAR 2014 [facility] Allergies, Adverse Reactions, Alerts Combined list of allergies from [facility] and [facility] facilities. It does not include entries that were removed or entered in error. Substance Category Reaction Severity Reaction type Status Date Reported Comments Source LIPITOR Propensity to adverse reactions to drug (finding) Muscle pain active 5 [facility] Immunizations Combined list of available immunizations from the Department of Defense and Veterans Affairs facilities. Immunization Series Date Given Administered By Site Reaction Lot Number CVX Code Drug Manager Paper Status Comments Source INFLUENZA, ADJUVANTED, TRIVALENT, PF 4 2023 168 complet ed HISTORICA L INFORMATI ON - FROM OTHER [facility], [facility] INFLUENZA, UNSPECIFIED FORMULATION 2023 88 complet ed HISTORICA L INFORMATI ON - FROM PATIENT'S WRITTEN RECORD, [facility] RSV, RECOMBINANT, PROTEIN SUBUNIT RSVPREF, ADJUVANT RECONSTITUTED , 0.5 ML, PF 1 2022 303 complet ed HISTORICA L INFORMATI ON - FROM OTHER [facility], [facility] N COVID-19 (MODERNA), MRNA, LNP-S, PF, 50 MCG/0.5 ML (AGES 12+ YEARS) 3 2022 312 complet ed HISTORICA L INFORMATI ON - FROM OTHER [facility], [facility] N INFLUENZA, INJECTABLE, QUADRIVALENT 3 2022 158 complet ed HISTORICA L INFORMATI ON - FROM OTHER REGISTRY, [facility] INFLUENZA, UNSPECIFIED FORMULATION 2022 88 complet ed HISTORICA L INFORMATI ON - FROM PATIENT'S WRITTEN RECORD, [facility] INFLUENZA, SEASONAL, INJECTABLE 2 2021 141 complet ed HISTORICA L INFORMATI ON - FROM OTHER [facility], [facility] N INFLUENZA, UNSPECIFIED FORMULATION 2021 88 complet ed [facility] N COVID-19 (MODERNA), MRNA, LNP-S, PF, 100 MCG OR 50 MCG DOSE 3 2020 207 complet ed MOD; [id number]; 2 [facility] TDAP 1 2020 115 complet ed HISTORICA L INFORMATI ON - FROM OTHER REGISTRY, [facility] N ZOSTER RECOMBINANT 1 2020 187 complet ed HISTORICA L INFORMATI ON - FROM OTHER REGISTRY, [facility] N INFLUENZA, INJECTABLE, QUADRIVALENT, PRESERVATIVE FREE 2020 150 complet ed [facility] COVID-19 (MODERNA), MRNA, LNP-S, PF, 100 MCG OR 50 MCG DOSE 2 2020 207 complet ed [facility] COVID-19 (MODERNA), MRNA, LNP-S, PF, 100 MCG OR 50 MCG DOSE 1 2020 207 complet ed [facility] INFLUENZA, SEASONAL, INJECTABLE 1 2019 141 complet ed HISTORICA L INFORMATI ON - FROM OTHER REGISTRY, [facility] N INFLUENZA, INJECTABLE, QUADRIVALENT, PRESERVATIVE FREE 2017 150 complet ed [facility] INFLUENZA, SEASONAL, INJECTABLE, PRESERVATIVE FREE 2016 140 complet ed Left Deltoid, [facility] INFLUENZA, SEASONAL, INJECTABLE, PRESERVATIVE FREE 2015 140 complet ed 02, Partner: Neeraj . Administe red by: Neeraj Clinician (NPI=Not Provided) . Partner 0 Lot#: [id number] Mfr: [facility] INFLUENZA, SEASONAL, INJECTABLE, PRESERVATIVE FREE 2014 140 complet ed [facility] PNEUMOCOCCAL CONJUGATE PCV 13 2014 133 complet ed [facility] TDAP 2010 115 complet ed [facility] INFLUENZA, UNSPECIFIED FORMULATION 2000 DAMIÁN SAWANT 88 complet ed [place] [facility] Results Combined list of recent chemistry, hematology and other laboratory results from Department of Defense and Veterans Affairs, ranging from 15 months to all on record, depending upon the facility. Order Name Results Value Reference Range Date Interpretation Specimen Comments Source CBC LEUKOCYTES [#/VOLUME] IN BLOOD BY AUTOMATED COUNT 7.2 10*3/u L 3.6 - 11.2 10/01 Specimen Type: BLOOD No comment entered. Ordering Provider: Marivel MAYORGA Report Released Date/Time : October 01, 2024 09:06 AM Reporting Lab: [place] [facility] [address] [place] [address] Performin g Lab: [place] [facility] [address] [place] [address] [facility] CBC ERYTHROCYTES [#/VOLUME] IN BLOOD BY AUTOMATED COUNT 4.90 10*6/u L 4.10 - 5.70 10/01 Specimen Type: BLOOD No comment entered. Ordering Provider: Marivel MAYORGA Report Released Date/Time : October 01, 2024 09:06 AM Reporting Lab: [place] [facility] [address] [place] [address] Performin g Lab: [place] [facility] [address] [place] [address] [facility] CBC HEMOGLOBIN [MASS/VOLUME] IN BLOOD 13.7 g/dL 13.1 - 16.8 10/01 Specimen Type: BLOOD No comment entered. Ordering Provider: Marivel MAYORGA Report Released Date/Time : October 01, 2024 09:06 AM Reporting Lab: [place] [facility] [address] [place] [address] Performin g Lab: [place] [facility] [address] [place] [address] [facility] CBC HEMATOCRIT [VOLUME FRACTION] OF BLOOD 42.8 38.2 - 48.4 10/01 Specimen Type: BLOOD No comment entered. Ordering Provider: Marivel MAYORGA Report Released Date/Time : October 01, 2024 09:06 AM Reporting Lab: [place] [facility] [address] [place] [address] Performin g Lab: [place] [facility] [address] [place] [address] [facility] CBC MCV [ENTITIC VOLUME] BY AUTOMATED COUNT 87.3 fL 80.0 - 100.0 10/01 Specimen Type: BLOOD No comment entered. Ordering Provider: Marivel MAYORGA R Report Released Date/Time : October 01, 2024 09:06 AM Reporting Lab: [place] [facility] [address] [place] [address] 8 Performin g Lab: [place] [facility] [address] [place] [address] [facility] CBC MCH [ENTITIC MASS] BY AUTOMATED COUNT 28.0 pg 27.0 - 34.0 10/01 Specimen Type: BLOOD No comment entered. Ordering Provider: Marivel MAYORGA Report Released Date/Time : October 01, 2024 09:06 AM Reporting Lab: [place] [facility] [address] [place] [address] 8 Performin g Lab: [place] [facility] [address] [place] [address] 8 [facility] CBC MCHC [MASS/VOLUME] BY AUTOMATED COUNT 32.0 g/dL 33.0 - 36.0 10/01 L Specimen Type: BLOOD No comment entered. Ordering Provider: Marivel MAYORGA R Report Released Date/Time : October 01, 2024 09:06 AM Reporting Lab: [place] [facility] [address] [place] [address] Performin g Lab: [place] [facility] [address] [place] [address] 8 [facility] CBC PLATELETS [#/VOLUME] IN BLOOD BY AUTOMATED COUNT 380 10*3/u L 150 - 400 10/01 Specimen Type: BLOOD No comment entered. Ordering Provider: Marivel MAYORGA R Report Released Date/Time : October 01, 2024 09:06 AM Reporting Lab: [place] [facility] [address] [place] [address] 8 Performin g Lab: [place] [facility] [address] [place] [address] [facility] CBC PLATELET MEAN VOLUME [ENTITIC VOLUME] IN BLOOD BY AUTOMATED COUNT 10.7 fL 7.5 - 11.2 10/01 Specimen Type: BLOOD No comment entered. Ordering Provider: Marivel MAYORGA Report Released Date/Time : October 01, 2024 09:06 AM Reporting Lab: [place] [facility] [address] [place] [address] 8 Performin g Lab: [place] [facility] [address] [place] [address] 8 [facility] CBC ERYTHROCYTE DISTRIBUTION WIDTH [RATIO] BY AUTOMATED COUNT 14.8 11.8 - 15.1 10/01 Specimen Type: BLOOD No comment entered. Ordering Provider: Marivel MAYORGA Report Released Date/Time : October 01, 2024 09:06 AM Reporting Lab: [place] [facility] [address] [place] [address] 8 Performin g Lab: [place] [facility] [address] [place] [address] [facility] CBC LYMPHOCYTES/1 00 LEUKOCYTES IN BLOOD BY AUTOMATED COUNT 20.8 10/01 Specimen Type: BLOOD No comment entered. Ordering Provider: Marivel MAYORGA Report Released Date/Time : October 01, 2024 09:06 AM Reporting Lab: [place] [facility] [address] [place] [address] 8 Performin g Lab: [place] [facility] [address] [place] [address] [facility] CBC MONOCYTES/100 LEUKOCYTES IN BLOOD BY AUTOMATED COUNT 10.6 10/01 Specimen Type: BLOOD No comment entered. Ordering Provider: Marivel MAYORGA Report Released Date/Time : October 01, 2024 09:06 AM Reporting Lab: [place] [facility] [address] [place] [address] 8 Performin g Lab: [place] [facility] [address] [place] [address] [facility] CBC NEUTROPHILS/1 00 LEUKOCYTES IN BLOOD BY AUTOMATED COUNT 66.4 10/01 Specimen Type: BLOOD No comment entered. Ordering Provider: Marivel MAYORGA Report Released Date/Time : October 01, 2024 09:06 AM Reporting Lab: [place] [facility] [address] [place] [address] 8 Performin g Lab: [place] [facility] [address] [place] [address] 8 [facility] CBC EOSINOPHILS/1 00 LEUKOCYTES IN BLOOD BY AUTOMATED COUNT 1.1 10/01 Specimen Type: BLOOD No comment entered. Ordering Provider: Marivel MAYORGA Report Released Date/Time : October 01, 2024 09:06 AM Reporting Lab: [place] [facility] [address] [place] [address] 8 Performin g Lab: [place] [facility] [address] [place] [address] 8 [facility] CBC BASOPHILS/100 LEUKOCYTES IN BLOOD BY AUTOMATED COUNT 0.8 10/01 Specimen Type: BLOOD No comment entered. Ordering Provider: Marivel MAYORGA Report Released Date/Time : October 01, 2024 09:06 AM Reporting Lab: [place] [facility] [address] [place] [address] 8 Performin g Lab: [place] [facility] [address] [place] [address] 8 [facility] CBC LYMPHOCYTES [#/VOLUME] IN BLOOD BY AUTOMATED COUNT 1.49 10*3/u L 0.77 - 4.50 10/01 Specimen Type: BLOOD No comment entered. Ordering Provider: Marivel MAYORGA Report Released Date/Time : October 01, 2024 09:06 AM Reporting Lab: [place] [facility] [address] [place] [address] 8 Performin g Lab: [place] [facility] [address] [place] [address] 8 [facility] CBC MONOCYTES [#/VOLUME] IN BLOOD BY AUTOMATED COUNT 0.76 10*3/u L 0.19 - 0.8 10/01 Specimen Type: BLOOD No comment entered. Ordering Provider: Marivel MAYORGA Report Released Date/Time : October 01, 2024 09:06 AM Reporting Lab: [place] [facility] [address] [place] [address] 8 Performin g Lab: [place] [facility] [address] [place] [address] 8 [facility] CBC NEUTROPHILS [#/VOLUME] IN BLOOD BY AUTOMATED COUNT 4.74 10*3/u L 2.10 - 8.00 10/01 Specimen Type: BLOOD No comment entered. Ordering Provider: Marivel MAYORGA Report Released Date/Time : October 01, 2024 09:06 AM Reporting Lab: [place] [facility] [address] [place] [address] 8 Performin g Lab: [place] [facility] [address] [place] [address] 8 [facility] CBC EOSINOPHILS [#/VOLUME] IN BLOOD BY AUTOMATED COUNT 0.08 10*3/u L 0.00 - 0.60 10/01 Specimen Type: BLOOD No comment entered. Ordering Provider: Marivel MAYORGA Report Released Date/Time : October 01, 2024 09:06 AM Reporting Lab: [place] [facility] [address] [place] [address] 8 Performin g Lab: [place] [facility] [address] [place] [address] 8 [facility] CBC BASOPHILS [#/VOLUME] IN BLOOD BY AUTOMATED COUNT 0.06 10*3/u L 0.00 - 0.20 10/01 Specimen Type: BLOOD No comment entered. Ordering Provider: Marivel MAYORGA Report Released Date/Time : October 01, 2024 09:06 AM Reporting Lab: [place] [facility] [address] [place] [address] 8 Performin g Lab: [place] [facility] [address] [place] [address] [facility] CBC IMMATURE GRANULOCYTES/ 100 LEUKOCYTES IN BLOOD BY AUTOMATED COUNT 0.3 10/01 Specimen Type: BLOOD No comment entered. Ordering Provider: Marivel MAYORGA Report Released Date/Time : October 01, 2024 09:06 AM Reporting Lab: [place] [facility] [address] [place] [address] 8 Performin g Lab: [place] [facility] [address] [place] [address] 8 [facility] CBC IMMATURE GRANULOCYTES [#/VOLUME] IN BLOOD BY AUTOMATED COUNT 0.02 10*3/u L 0.00 - 0.05 10/01 Specimen Type: BLOOD No comment entered. Ordering Provider: Marivel MAYORGA Report Released Date/Time : October 01, 2024 09:06 AM Reporting Lab: [place] [facility] [address] [place] [address] Performin g Lab: [place] [facility] [address] [place] [address] [facility] COMPREHENSI VE METABOLIC PANEL CREATININE [MASS/VOLUME] IN SERUM OR PLASMA 0.85 mg/dL 0.7 - 1.3 10/01 Specimen Type: PLASMA No comment entered. Ordering Provider: Marivel MAYORGA Report Released Date/Time : October 01, 2024 09:06 AM Reporting Lab: [place] [facility] [address] [place] [address] Performin g Lab: [place] [facility] [address] [place] [address] [facility] COMPREHENSI VE METABOLIC PANEL UREA NITROGEN [MASS/VOLUME] IN SERUM OR PLASMA 18 mg/dL 9 - 25 10/01 Specimen Type: PLASMA No comment entered. Ordering Provider: Marivel MAYORGA Report Released Date/Time : October 01, 2024 09:06 AM Reporting Lab: [place] [facility] [address] [place] [address] Performin g Lab: [place] [facility] [address] [place] [address] [facility] COMPREHENSI VE METABOLIC PANEL GLUCOSE [MASS/VOLUME] IN SERUM OR PLASMA 105 mg/dL 72 - 99 10/01 H Specimen Type: PLASMA No comment entered. Ordering Provider: Marivel MAYORGA R Report Released Date/Time : October 01, 2024 09:06 AM Reporting Lab: [place] [facility] [address] [place] [address] Performin g Lab: [place] [facility] [address] [place] [address] [facility] COMPREHENSI VE METABOLIC PANEL SODIUM [MOLES/VOLUME ] IN SERUM OR PLASMA 140 meq/L 136 - 145 10/01 Specimen Type: PLASMA No comment entered. Ordering Provider: Marivel MAYORGA R Report Released Date/Time : October 01, 2024 09:06 AM Reporting Lab: [place] [facility] [address] [place] [address] 8 Performin g Lab: [place] [facility] [address] [place] [address] [facility] COMPREHENSI VE METABOLIC PANEL POTASSIUM [MOLES/VOLUME ] IN SERUM OR PLASMA 4.3 meq/L 3.5 - 5 10/01 Specimen Type: PLASMA No comment entered. Ordering Provider: Marivel MAYORGA Report Released Date/Time : October 01, 2024 09:06 AM Reporting Lab: [place] [facility] [address] [place] [address] Performin g Lab: [place] [facility] [address] [place] [address] 8 [facility] COMPREHENSI VE METABOLIC PANEL CHLORIDE [MOLES/VOLUME ] IN SERUM OR PLASMA 106 meq/L 98 - 107 10/01 Specimen Type: PLASMA No comment entered. Ordering Provider: Marivel MAYORGA R Report Released Date/Time : October 01, 2024 09:06 AM Reporting Lab: [place] [facility] [address] [place] [address] Performin g Lab: [place] [facility] [address] [place] [address] [facility] COMPREHENSI VE METABOLIC PANEL CARBON DIOXIDE, TOTAL [MOLES/VOLUME ] IN SERUM OR PLASMA 25 meq/L 22 - 31 10/01 Specimen Type: PLASMA No comment entered. Ordering Provider: Marivel MAYORGA R Report Released Date/Time : October 01, 2024 09:06 AM Reporting Lab: [place] [facility] [address] [place] [address] 8 Performin g Lab: [place] [facility] [address] [place] [address] 8 [facility] COMPREHENSI VE METABOLIC PANEL CALCIUM [MASS/VOLUME] IN SERUM OR PLASMA 9.5 mg/dL 8.4 - 10.4 10/01 Specimen Type: PLASMA No comment entered. Ordering Provider: Marivel MAYORGA Report Released Date/Time : October 01, 2024 09:06 AM Reporting Lab: [place] [facility] [address] [place] [address] Performin g Lab: [place] [facility] [address] [place] [address] 8 [facility] COMPREHENSI VE METABOLIC PANEL PROTEIN [MASS/VOLUME] IN SERUM OR PLASMA 7.1 g/dL 6 - 8.6 10/01 Specimen Type: PLASMA No comment entered. Ordering Provider: Marivel MAYORGA Report Released Date/Time : October 01, 2024 09:06 AM Reporting Lab: [place] [facility] [address] [place] [address] Performin g Lab: [place] [facility] [address] [place] [address] [facility] COMPREHENSI VE METABOLIC PANEL ALBUMIN [MASS/VOLUME] IN SERUM OR PLASMA 4.3 g/dL 3.4 - 5 10/01 Specimen Type: PLASMA No comment entered. Ordering Provider: Marivel MAYORGA R Report Released Date/Time : October 01, 2024 09:06 AM Reporting Lab: [place] [facility] [address] [place] [address] Performin g Lab: [place] [facility] [address] [place] [address] 8 [facility] COMPREHENSI VE METABOLIC PANEL BILIRUBIN.TOT AL [MASS/VOLUME] IN SERUM OR PLASMA 0.6 mg/dL 0.2 - 1.2 10/01 Specimen Type: PLASMA No comment entered. Ordering Provider: Marivel MAYORGA R Report Released Date/Time : October 01, 2024 09:06 AM Reporting Lab: [place] [facility] [address] [place] [address] Performin g Lab: [place] [facility] [address] [place] [address] [facility] COMPREHENSI VE METABOLIC PANEL ALKALINE PHOSPHATASE [ENZYMATIC ACTIVITY/VOLU ME] IN SERUM OR PLASMA 73 U/L 40 - 150 10/01 Specimen Type: PLASMA No comment entered. Ordering Provider: Marivel MAYORGA R Report Released Date/Time : October 01, 2024 09:06 AM Reporting Lab: [place] [facility] [address] [place] [address] Performin g Lab: [place] [facility] [address] [place] [address] [facility] COMPREHENSI VE METABOLIC PANEL ASPARTATE AMINOTRANSFER ASE [ENZYMATIC ACTIVITY/VOLU ME] IN SERUM OR PLASMA 26 U/L 5 - 34 10/01 Specimen Type: PLASMA No comment entered. Ordering Provider: Marivel MAYORGA Report Released Date/Time : October 01, 2024 09:06 AM Reporting Lab: [place] [facility] [address] [place] [address] Performin g Lab: [place] [facility] [address] [place] [address] [facility] COMPREHENSI VE METABOLIC PANEL ALANINE AMINOTRANSFER ASE [ENZYMATIC ACTIVITY/VOLU ME] IN SERUM OR PLASMA 16 U/L 8 - 40 10/01 Specimen Type: PLASMA No comment entered. Ordering Provider: Marivel MAYORGA R Report Released Date/Time : October 01, 2024 09:06 AM Reporting Lab: [place] [facility] [address] [place] [address] Performin g Lab: [place] [facility] [address] [place] [address] [facility] COMPREHENSI VE METABOLIC PANEL GLOMERULAR FILTRATION RATE/1.73 SQ M.PREDICTED [VOLUME RATE/AREA] IN SERUM, PLASMA OR BLOOD BY CREATININE-BA SED FORMULA (CKD-EPI 2020) 84 10/01 Specimen Type: PLASMA No comment entered. Ordering Provider: Marivel MAYORGA R Report Released Date/Time : October 01, 2024 09:06 AM Reporting Lab: [place] [facility] [address] [place] [address] Performin g Lab: [place] [facility] [address] [place] [address] [facility] B12 COBALAMIN (VITAMIN B12) [MASS/VOLUME] IN SERUM OR PLASMA 521 pg/mL 213 - 816 10/01 Specimen Type: SERUM No comment entered. Ordering Provider: Marivel MAYORGA Report Released Date/Time : October 01, 2024 09:06 AM Reporting Lab: [place] [facility] [address] [place] [address] Performin g Lab: [place] [facility] [address] [place] [address] [facility] FOLATE (PB) FOLATE [MASS/VOLUME] IN SERUM OR PLASMA 12.6 ng/mL 7 - 20 10/01 Specimen Type: SERUM No comment entered. Ordering Provider: Marivel MAYORGA Report Released Date/Time : October 01, 2024 09:06 AM Reporting Lab: [place] [facility] [address] [place] [address] Performin g Lab[place] [facility] [address] [place] [address] [facility] HGA1C HEMOGLOBIN A1C/HEMOGLOBI N.TOTAL IN BLOOD 6.6 4.0 - 6.0 10/01 H Specimen Type: BLOOD No comment entered. Ordering Provider: Marivel MAYORGA Report Released Date/Time : October 01, 2024 09:06 AM Reporting Lab: [place] [facility] [address] [place] [address] Performin g Lab: [place] [facility] [address] [place] [address] [facility] CHOLESTEROL PANEL (PB) CHOLESTEROL [MASS/VOLUME] IN SERUM OR PLASMA 247 mg/dL 0 - 200 10/01 H Specimen Type: PLASMA No comment entered. Ordering Provider: Marivel MAYORGA Report Released Date/Time : October 01, 2024 09:06 AM Reporting Lab: [place] [facility] [address] [place] [address] Performin g Lab: [place] [facility] [address] [place] [address] [facility] CHOLESTEROL PANEL (PB) TRIGLYCERIDE [MASS/VOLUME] IN SERUM OR PLASMA 89 mg/dL 0 - 150 10/01 Specimen Type: PLASMA No comment entered. Ordering Provider: Marivel MAYORGA R Report Released Date/Time : October 01, 2024 09:06 AM Reporting Lab: [place] [facility] [address] [place] [address] Performin g Lab: [place] [facility] [address] [place] [address] [facility] CHOLESTEROL PANEL (PB) CHOLESTEROL IN LDL [MASS/VOLUME] IN SERUM OR PLASMA BY CALCULATION 146.2 mg/dL 10/01 Specimen Type: PLASMA No comment entered. Ordering Provider: Marivel MAYORGA R Report Released Date/Time : October 01, 2024 09:06 AM Reporting Lab: [place] [facility] [address] [place] [address] Performin g Lab: [place] [facility] [address] [place] [address] [facility] CHOLESTEROL PANEL (PB) CHOLESTEROL IN HDL [MASS/VOLUME] IN SERUM OR PLASMA 83.0 mg/dL 40 10/01 H Specimen Type: PLASMA No comment entered. Ordering Provider: Marivel MAYORGA R Report Released Date/Time : October 01, 2024 09:06 AM Reporting Lab: [place] [facility] [address] [place] [address] Performin g Lab: [place] [facility] [address] [place] [address] [facility] CHOLESTEROL PANEL (PB) CHOLESTEROL IN HDL/CHOLESTER OL.TOTAL [MASS RATIO] IN SERUM OR PLASMA 33.6 25 10/01 Specimen Type: PLASMA No comment entered. Ordering Provider: Marivel MAYORGA R Report Released Date/Time : October 01, 2024 09:06 AM Reporting Lab: [place] [facility] [address] [place] [address] Performin g Lab: [place] [facility] [address] [place] [address] [facility] VITAMIN D, 25-HYDROXY 25-HYDROXYVIT PERSON D3 [MASS/VOLUME] IN SERUM OR PLASMA 30.3 ng/mL 30 - 96 10/01 Specimen Type: SERUM No comment entered. Ordering Provider: Marivel MAYORGA Report Released Date/Time : October 01, 2024 09:06 AM Reporting Lab: [place] [facility] [address] [place] [address] Performin g Lab: [place] [facility] [address] [place] [address] [facility] TSH (MA-PB) THYROTROPIN [UNITS/VOLUME ] IN SERUM OR PLASMA 2.132 u[IU]/ mL 0.47 - 5 10/01 Specimen Type: SERUM No comment entered. Ordering Provider: Marivel MAYORGA Report Released Date/Time : October 01, 2024 09:06 AM Reporting Lab: [place] [facility] [address] [place] [address] Performin g Lab: [place] [facility] [address] [place] [address] [facility] HGA1C HEMOGLOBIN A1C/HEMOGLOBI N.TOTAL IN BLOOD 6.4 4.0 - 6.0 10/02 H Specimen Type: BLOOD No comment entered. Ordering Provider: Marivel MAOYRGA Report Released Date/Time : October 03, 2023 11:44 AM Reporting Lab: [place] [facility] [address] [place] [address] Performin g Lab: [place] [facility] [address] [place] [address] [facility] TSH (MA-PB) THYROTROPIN [UNITS/VOLUME ] IN SERUM OR PLASMA 1.593 u[IU]/ mL 0.47 - 5 10/02 Specimen Type: SERUM No comment entered. Ordering Provider: Marivel MAYORGA Report Released Date/Time : October 03, 2023 11:44 AM Reporting Lab: [place] [facility] [address] [place] [address] Performin g Lab: [place] [facility] [address] [place] [address] [facility] Vital Signs Combined list of inpatient and outpatient Vital Signs from [facility] and [facility], ranging from 12 months to all on record, depending upon the facility. Vital Sign Value Date Comments Source SYSTOLIC BLOOD PRESSURE 172 10/01/2024 09:24:00 [facility] DIASTOLIC BLOOD PRESSURE 77 10/01/2024 09:24:00 [facility] PULSE OXIMETRY 97 10/01/2024 09:24:00 [facility] WEIGHT 187.0 10/01/2024 09:24:00 [facility] BMI 26 kg/m2 10/01/2024 09:24:00 [facility] PAIN 0 10/01/2024 09:24:00 [facility] HEIGHT 71.0 10/01/2024 09:24:00 [facility] PULSE 75 10/01/2024 09:24:00 [facility] RESPIRATION 16 10/01/2024 09:24:00 [facility] Encounters Combined list of: 1) Encounters from Department of [facility] facilities going backup to the last 18 months, not all [place] inpatient encounters are included; 2) Encounters from the [facility] facilities going backup to 280 months. Location Location Details Encounter Type Encounter Number Reason For Visit Attending Provider ADM Date DC Date Status Disposition Source [facility] Outpatient Encounter [id number] Diagnos is: ICD-10- CM Z00.00 Encntr for general adult medical exam w/o abnorma l finding s MAYORGA,CA THERINE R 10/02 [facility] Outpatient Encounter [id number] 10/03 [facility] Outpatient Encounter [id number] 10/09 [facility] Outpatient Encounter [id number] 02/21 [facility] N [facility] Outpatient Encounter [id number] 03/05 [facility] Outpatient Encounter [id number] LAUREN WATTS 09/12 [facility] Outpatient Encounter [id number] TERENCE MAYORGA 10/01 [facility] Outpatient Encounter [id number] Diagnos is: ICD-10- CM Z00.00 Encntr for general adult medical exam w/o abnorma l finding s TERENCE MAYORGA 10/01 [facility] Outpatient Encounter [id number] 10/03 [facility] Outpatient Encounter [id number] 10/15 [facility] Outpatient Encounter [id number] 10/21 [facility] Outpatient Encounter [id number] PERRY VICK 10/[address] [facility] OFF/OP EST SEPTEMBER X REQ PHY/QHP [id number] Diagnos is: ICD-10- CM Z71.89 Other specifi ed classification counselor ing CUSTRED,TO RRI J 10/29 [facility] Outpatient Encounter [id number] 12/02 [facility] Outpatient Encounter [id number] Canelo SILVESTRE 12/11 [facility] Outpatient Encounter [id number] 12/24 [facility] Social History Combined list of available smoking, tobacco, and other social history from Department of Defense and Veterans Affairs facilities. Social History Type Response Date Comment Sourc e Tobacco smoking status NHIS VA-TOBACCO USE FORMER CIGARETTES 10/01/2024 [facility] History of tobacco use IN-TOBACCO NEVER USED OTHER TYPE 10/01/2024 [facility] History of tobacco use IN-TOBACCO FORMER USER 10/03/2023 [facility] History of tobacco use QUIT TOBACCO >7 Y EARS AGO 02/03/2015 [facility] Plan of Care List of future care activities from Department of [facility] Affairs facilities. Additional future care activities may be listed in the Assessment and Plan section. Date/Time Care Activity Care Activity Detail Facili ty 12/11/2024 Consult Order [facility] 657A4 Cons Director Of Distribution's Choice DHRUV GALLEGOS [facility]
--- OUTSIDE RECORDS SUMMARY | 2025-01-12 11:57 | XMS_ITS | Encounter Summary ---
Author Organization [facility] Address [address] [place] [address] Care Team Providers Care Leather Currier Name Role Phone Concepción Douglas DO Primary Care Provider Encounter Details Date Type Department Care Team (Latest Contact Info) Description 09/10/2015 Ancillary Orders [facility] - Orthopedic [facility] [address] [place] [address] Aneudy Walters MD NO ADDRESS ON FILE Arthralgia of left hip (Primary Dx) Social History Tobacco Use Types Packs/Day Years Used Date Smoking Tobacco: Former Cigarettes 0.3 10 1 05/19/1959 - 03/19/1970 Smokeless Tobacco: Former Snuff Quit: 03/19/1970 Comments:dipped for less goldy n one yr Alcohol Use Standard Drinks/Week Comments No 0 (1 standard drink = 0.6 oz pur e alcohol) Sex and Gender Information Value Date Recorded Sex Assigned at Not on file Legal Sex Male 1:25 PM CDT Gender Identity Not on file Sexual Orientation Not on file documented as of this encounter Plan of Treatment Scheduled Orders Name Type Priority Associated Diagnoses Orde r Schedule XR PELVIS 3+ VW Imaging Routine Arthralgia of left hip Expected: 09/07/2015, Expires: 11/06/2015 documented as of this encounter Visit Diagnoses Diagnosis Arthralgia of left hip- Primary documented in this encounter Care Teams Leather Currier Relationship Specialty Start Date End Date Concepción Douglas DO [address] [place] [id number] PCP - General Family Practice 04/21/15 08/09/20 documented as of this encounter
--- OUTSIDE RECORDS SUMMARY | 2025-01-12 11:57 | XMS_ITS | Clinical Summary ---
Author Organization [facility] Address [address] [facility] Attn: Epic Prelude ADT NIKHIL STEPHENSON [address] Care Team Providers Care Sack Maker Name Role Phone Unavailable Primary Care Provider Unavailabl e Allergies Active Allergy Reactions Criticality Noted Date Comments Amlodipine Other (See Comments) 08/08/2023 Leg swelling Atorvastatin Muscle Pain Low 02/03/2015 Oxycodone Constipation Low 05/18/2015 Medications ezetimibe (ZETIA) 10 mg tablet Take 10 mg by mouth daily. Active cholecalciferol, vitamin D3, 5,000 unit Take 5,000 Units by mouth daily. Active lisinopriL (PRINIVIL) 10 mg tabletIndications :Primary hypertension Take 1 Tablet (10 mg) by mouth daily. 100 Tablet 3 4 Active acetaminophen (TYLENOL) 325 mg tabletIndications :Chronic arthritis Take 2 Tablets (650 mg) by mouth every 6 hours as needed for Pain. 200 Tablet 3 4 Active sertraline (ZOLOFT) 25 mg tablet Take 25 mg by mouth daily. Active celecoxib (CeleBREX) 100 mg capsule Take 100 mg by mouth 2 times daily. 4 Active Active Problems Problem Noted Date Diagnosed Date Primary hypertension 11/08/2023 Anxiety 11/08/2023 Chronic arthritis 11/08/2023 Type 2 diabetes mellitus wit hout complication, without long-term current use of insulin 08/10/2023 Status post total hip replacement, left 03/31/20 19 Vitamin D deficiency 07/02/2017 Status post total replacement of right hip 03-3007/21/2015 Bilateral hydronephrosis (moderate) 04/08/2015 Chronic idiopathic constipation 04/08/2015 History of basal cell cancer Overview (09/09/2020): skin under rt eye per pt 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 Overview (09/09/2020): urinary retention Mixed hyperlipidemia Resolved Problems Problem Noted Date Diagnosed Date Resolved Date Acute appendicitis with perf oration and localized peritonitis, without abscess or gangrene 05/31/2019 08/08/2023 Primary osteoarthritis of both hips 12/13/2015 04/01/2018 Acute urinary retention 04/08/201507/13 Bilateral lower extremity edema 04/08/2015 08/08/2023 Immunizations Immunization Administration Dates Next Due (ADACEL/BOOSTRIX)(10 YR UP) TDAP VACCINE, 0.5ML, IM 12/26/2010 (PREVNAR 13)(6 WKS UP) PNEUM OCOCCAL CONJUGATE (PCV13) 0.5 ML, IM 02/03/2015 INFLUENZA VACCINE QUADRIVALE NT 6 MOS UP PF IM 03/01/2018 Influenza Seasonal Unspecifi ed Formulation IM 02/19/2019,03/08/2016,01/06/2015 Influenza Vaccine Split 3+ Yrs PF IM 03/10/2016, 02/03/2015 Influenza Vaccine Tri Adjuvanted 65+ PF IM 03/08 Influenza Vaccine Tri Split 4+ Pf Im 03/09/2017, 03/10/2016,02/03/2015 Pneumococcal conjugate, unsp ecified formulation 01/06/2015 Family History Medical History Relation Name Comments Cancer Brother 1 Aron kidney Healthy Brother 2 Wendall Cancer Father Maximino leukemia Heart Disease Mother Lacey Other Son Yong hemiplegia from Colon Cancer Neg Hx Relation Name Status Comments Brother 1 Aron (Age 56) Brother 2 Wendall Alive Father Maximino (Age 83) Mother Lacey (Age 81) Son Yong Alive Social History Tobacco Use Types Packs/Day Years Used Date Smoking Tobacco: Former Cigarettes Q uit: 03/19/1970 Smokeless Tobacco: Former Quit: 03/19/1970 Tobacco Cessation:Counseling Given: Not Answered Comments:Quit smoking: dipped for less than one yr Alcohol Use Standard Drinks/Week Comments No 0 (1 standard drink = 0.6 oz pur e alcohol) Sex and Gender Information Value Date Recorded Sex Assigned at Not on file Legal Sex Male 4:46 AM CHOIR LEADER Gender Identity Not on file Sexual Orientation Not on file Last Filed Vital Signs Vital Sign Reading Time Taken Comments Blood Pressure 136/58 11/20/2023 9:55 AM CDT Pulse 90 11/20/2023 9:55 AM CDT Temperature 36.3 C (97.4 F) 11/20/2023 9:55 AM CDT Respiratory Rate 18 11/20/2023 9:55 AM CDT Oxygen Saturation 97% 11/20/2023 9:55 AM CDT Inhaled Oxygen Concentration - - Weight 87.3 kg (192 lb 6.4 oz) 11/20/2023 9:55 A M CDT Height 180.3 cm (5' 11 ) 11/20/2023 9:55 AM CDT Body Mass Index 26.83 11/20/2023 9:55 AM CDT Plan of Treatment Health Maintenance Due Date Last Done Comments DIABETES ANNUAL FOOT EXAM 1953 DIABETES MICROALBUMIN ANNUAL SCREEN 1953 ZOSTER VACCINE (1 of 2) 1986 RSV VACCINE (60+ or ) (1 - 1-dose 75+ series) 2011 PNEUMOCOCCAL VACCINE 50+ YEA RS (2 of 2 - PPSV23, PCV20, or PCV21) 03/31/2015 02/03/2015, 01/06/2015 DTAP/TDAP/TD VACCINES (2 - T d or Tdap) 12/26/2020 12/26/2010 DIABETES ANNUAL RETINAL EXAM 03/11/2021, 02/14/2018, 03/19/2017, Additional history exists DIABETES HBA1C Q 6 MONTHS 05/09/2024 11/08/2023, LDL CHOLESTEROL ANNUAL 08/07/2024 4, 09/30/2019, 07/07/2019, Additional history exists INFLUENZA VACCINE (#1) 2024 3, 02/14/2022, 02/24/2021, Additional history exists Medical Devices Implanted Type Area Java Software Architect Device Identifier Shelf Expiration Date Model / Serial / Lot Head Fem V40 Tpr Lfit 6260-9-136 - [id number] Implanted:Qty : 1 on 03/30/2015 by Aneudy Walters MD Hip Right: Hip [employer] 01/27/2020 6260-9-136 / / [id number] Liner Trdnt X3 Poly 0d 623--36f - [id number] Implanted:Qty : 1 on 03/30/2015 by Aneudy Walters MD Hip Right: Hip [employer] 01/26/2020 623-00-36F / / [id number] Plug Hole Dome 4047-1203-1 - [id number] Implanted:Qty : 1 on 03/30/2015 by Aneudy Walters MD Hip Right: Hip [employer] 03/15/20208510-0517- 1 / / [id number] Shell Trdnt Pal[place] Multi 502-11-58f - [id number] Implanted:Qty : 1 on 03/30/2015 by Aneudy Walters MD Hip Right: Hip [employer] 08/12/2019 502-11-58F / / [id number] Stem Fem Accld Ii 127d Sz7 5028-8215 - [id number] Implanted:Qty : 1 on 03/30/2015 by Aneudy Walters MD Hip Right: Hip [employer] 09/11/2019 7249-6722 / / [id number] Stem Fem Accld Ii 127d Sz7 9659-0710 - [id number] Implanted:Qty : 1 on 09/30/2015 by Aneudy Walters MD Hip Left: Hip [employer] [id number] 07/04/2020 5681-3377 / / [id number] Head Fem V40 Tpr Lfit 6260-9-136 - [id number] Implanted:Qty : 1 on 09/30/2015 by Aneudy Walters MD Hip Left: Hip [employer] 05/13/2018 6260-9-136 / / [id number] Liner Trdnt X3 Poly 0d 623-00-36f - [id number] Implanted:Qty : 1 on 09/30/2015 by Aneudy Walters MD Hip Left: Hip [employer] [id number] 07/07/2020 623-00-36F / / [id number] Plug Hole Dome - [id number] Implanted:Qty : 1 on 09/30/2015 by Aneudy Walters MD Hip Left: Hip [employer] [id number] 08/28/2020- 1 / / [id number] Shell Trdnt [place] Multi 502-11-58f - [id number] Implanted:Qty : 1 on 09/30/2015 by Aneudy Walters MD Hip Left: Hip [employer] [id number] 06/14/2020 502-11-58F / / [id number] Screw Canc 6.5x25mm - [id number] Implanted:Qty : 1 on 03/30/2015 by Aneudy Walters MD Screw Right: Hip [employer] 02/01/20208529-1531- / / [id number] Screw Canc 6.5x25mm - [id number] Implanted:Qty : 1 on 09/30/2015 by Aneudy Walters MD Screw Left: Hip [employer] [id number] 08/10/202020292453-9440- 1 / / [id number] Procedures Procedure Name Priority Date/Time Associated Diagnosis Comments HEMOGLOBIN A1C Routine 11/08/2023 4:14 PM CDT Type 2 diabetes mellitus without complication, without long-term current use of insulin ([facility]) LIPID PANEL Routine 08/08/2023 3:13 PM CDT Encounter to establish care with new doctor Mixed hyperlipidemia Primary hypertension from Last 3 Months or Most Recently Relevant to Health Maintenance Results * (ABNORMAL) HEMOGLOBIN A1C (11/08/2023 4:14 PM CDT) HEMOGLOBIN A1C 6.3(H) <5.7 % of total Hgb [facility] Comment: For someone without known diabetes, a hemoglobin A1c value between 5.7% and 6.4% is consistent with prediabetes and should be confirmed with a follow-up test. For someone with known diabetes, a value <7% indicates that their diabetes is well controlled. A1c targets should be individualized based on duration of diabetes, age, comorbid conditions, and other considerations. This assay result is consistent with an increased risk of diabetes. Currently, no consensus exists regarding use of hemoglobin A1c for diagnosis of diabetes for children. ESTIMATED AVERAGE GLUCOSE (MG/DL) 134 mg/dL [facility] ESTIMATED AVERAGE GLUCOSE (MMOL/L) 7.4 mmol/L [facility] Comment: This test was performed on the [employer] sundar c503 platform. Effective 07/30/23, a change in test platforms from the Wang General Education Instructor to the [employer] sundar c503 may have shifted HbA1c results compared to historical results. Based on laboratory validation testing conducted at [facility], the [employer] platform relative to the Wang platform had an average increase in HbA1c value of < or = 0.3%. This difference is within accepted variability established by the National Glycohemoglobin Standardization Program. Note that not all individuals will have had a shift in their results and direct comparisons between historical and current results for testing conducted on different platforms is not recommended. Test Performed at: [facility] [id number] [facility] [place] [address] Lu Silva MD Blood 11/08/2023 4:14 PM CDT 11/09/2023 3:39 AM CDT Linda Celis WELLNESS COACH CHEMISTRY ORDERABLES Final Result [facility] [phone] [facility] [address] [place] [id number] * (ABNORMAL) LIPID PANEL (08/08/2023 3:13 PM CDT) CHOLESTEROL 200(H) <200 mg/dL [facility] HDL 73 > OR = 40 mg/dL [facility] TRIGLYCERIDE 218(H) <150 mg/dL [facility] Comment: If a non-fasting specimen was collected, consider repeat triglyceride testing on a fasting specimen if clinically indicated. Sheri et al. J. of Clin. Lipidol. 2015;9:129-169. LDL CALCULATED 95 mg/dL (calc) [facility] Comment: Reference range: <100 Desirable range <100 mg/dL for primary prevention; <70 mg/dL for patients with CHD or diabetic patients with > or = 2 CHD risk factors. LDL-C is now calculated using the Viky calculation, which is a validated novel method providing better accuracy than the Friedewald equation in the estimation of LDL-C. Uri SS et al. MARIA LUISA. 2013;310(19): 0641-4836 (http://education.[employer]/faq/MWS276) CHOL/HDL RATIO 2.7 <5.0 (calc) [facility] TOTAL NON-HDL CHOL(LDL+VLDL) 127 <130 mg/dL (calc) [facility] Comment: For patients with diabetes plus 1 major ASCVD risk factor, treating to a non-HDL-C goal of <100 mg/dL (LDL-C of <70 mg/dL) is considered a therapeutic option. Test Performed at: [facility] [address] [facility] [place] [address] Lu Silva MD Blood 08/08/2023 3:13 PM CDT 08/09/2023 3:53 AM CDT Linda Celis WELLNESS COACH CHEMISTRY ORDERABLES Final Result [facility] [phone] [facility] [address] [facility] [phone] from Last 3 Months or Most Recently Relevant to Health Maintenance Insurance [facility] [id number] * Guarantor: SRIRAM ACOSTA Account Type Relation to Patient Date of Phone Billing Address Personal/Family [address] [place] [id number] [address] [facility] [employer] Advance Directives For more information, please contact: [phone] Documents on File Type Date Recorded Patient Hoisting Engineer Pile Driving Expl anation Advance Directive Living Will 07/04/2018 9:09 AM Advance Directive Living Will
--- OUTSIDE RECORDS SUMMARY | 2025-01-12 11:57 | XMS_ITS | Encounter Summary ---
Author Organization [facility] Address [address] [place] [address] Care Team Providers Care Lockmaker Name Role Phone Stella Concepción Sunny BARBA Primary Care Provider [phone] Reason for Referral * CT Scan (Routine) - Closed Specialty Diagnoses / Procedures Referred By Contac t Referred To Contact Radiology Diagnoses Abdominal pain, RLQ Abdominal pain, acute, right lower quadrant Leukocytosis, unspecified type Nausea Procedures CT ABDOMEN PELVIS WO CONTRAST Dora Johnson FNP Phone: tel: fax: [facility] CT Scan [place] [address] [facility] [address] [place] [address] Phone: tel: fax: Referral ID Status Reason Start Date Expiration Date Visits Re quested Visits Authorized [id number] Closed 05/29/2019 06/29/2020 1 1 ENGINEER Encounter Details Date Type Department Care Team (Late st Contact Info) Description 05/30/2019 Ancillary Orders [facility] CT Scan [place] [address] [facility] [address] [place] [address] Dora Johnson FNP [address] [place] [id number] Abdominal pain, RLQ; Abdominal pain, acute, right lower quadrant; Leukocytosis, unspecified type; Nausea Social History Tobacco Use Types Packs/Day Years [...] as of this encounter Plan of Treatment Not on file documented as of this encounter Results * CT ABDOMEN PELVIS WO CONTRAST (05/29/2019 12:08 PM SOIL ENGINEER) Anatomical Region Laterality Modality Abdomen Computed Tomogra phy 06/13/2019 12:1 0 PM SOIL ENGINEER Impressions 06/17/2019 12:08 PM SOIL ENGINEER IMPRESSION: Acute appendicitis with localized perforation. Minor findings as described above. [id number] Narrative 06/17/2019 12:08 PM SOIL ENGINEER ATTENTION: This replaces accession number [id number]. Exam: CT ABDOMEN PELVIS WO CONTRAST Date/Time of Exam: 05/29/2019 12:08 PM Reason For Exam: See Diagnosis. Diagnosis: Abdominal pain, RLQ; Abdominal pain, acute, right lower quadrant; Leukocytosis, unspecified type; Nausea. Technique: CT of the abdomen and pelvis was performed following the administration of intravenous contrast. Contrast: Oral contrast only. FINDINGS: Comparison 04/08/2015. Liver is normal in size with no significant focal pathology. The gallbladder is unremarkable. No biliary dilatation is seen. The pancreas and spleen are unremarkable. Adrenal glands are within normal limits. Vascular calcification seen in the kidneys. There is an abnormal appearance of the appendix with features including appendicolith, wall thickening and periappendiceal fat infiltration. In addition, there is absence of the normal appearing wall near the tip of the appendix with some air bubbles seen on series 3 image 286 consistent with perforation. No free intraperitoneal air is seen. Colonic diverticulosis noted. Bladder is unremarkable. Prostate obscured by artifact from hip replacements. There is no ascites or adenopathy. No significant basilar pulmonary pathology is seen. There are degenerative changes noted in the spine. Procedure Note Terence Alarcon MD - 06/17/2019 ATTENTION: This replaces accession number [id number]. Exam: CT ABDOMEN PELVIS WO CONTRAST Date/Time of Exam: 05/29/2019 12:08 PM Reason For Exam: See Diagnosis. Diagnosis: Abdominal pain, RLQ; Abdominal pain, acute, right lower quadrant; Leukocytosis, unspecified type; Nausea. Technique: CT of the abdomen and pelvis was performed following the administration of intravenous contrast. Contrast: Oral contrast only. FINDINGS: Comparison 04/08/2015. Liver is normal in size with no significant focal pathology. The gallbladder is unremarkable. No biliary dilatation is seen. The pancreas and spleen are unremarkable. Adrenal glands are within normal limits. Vascular calcification seen in the kidneys. There is an abnormal appearance of the appendix with features including appendicolith, wall thickening and periappendiceal fat infiltration. In addition, there is absence of the normal appearing wall near the tip of the appendix with some air bubbles seen on series 3 image 286 consistent with perforation. No free intraperitoneal air is seen. Colonic diverticulosis noted. Bladder is unremarkable. Prostate obscured by artifact from hip replacements. There is no ascites or adenopathy. No significant basilar pulmonary pathology is seen. There are degenerative changes noted in the spine. IMPRESSION: Acute appendicitis with localized perforation. Minor findings as described above. [id number] MIXER CT ORDERABLES Final Result documented in this encounter Visit Diagnoses Diagnosis Abdominal pain, RLQ Abdominal pain, right lower quadrant Abdominal pain, acute, right lower quadrant Abdominal pain, right lower quadrant Leukocytosis, unspecified type Nausea Nausea alone Abdominal pain, RLQ Abdominal pain, right lower quadrant Abdominal pain, acute, right lower quadrant Abdominal pain, right lower quadrant Leukocytosis, unspecified type Nausea Nausea alone documented in this encounter Care Teams Lockmaker Relationship Specialty Start Date End Date Concepción Douglas DO [address] [place] [address] PCP - General Family Practice 04/21/15 08/09/20 documented as of this encounter
--- OUTSIDE RECORDS SUMMARY | 2025-01-12 11:57 | XMS_ITS | Encounter Summary ---
Author Organization [facility] Address [address] [place] [address] Care Team Providers Care Under Cutting Machine Operator Name Role Phone Concepción Douglas Sunny BARBA Primary Care Provider Encounter Details Date Type Department Care Team (Latest Contact Info) Description 03/31/2019 Ancillary Orders [facility] Orthopedics - Orthopedic [facility] [address] [place] [address] Tyrel Carrillo PA-C NO ADDRESS ON FILE H/O total replacement of right hip 03-30-2015; History of total left hip replacement 2015; Hx of total hip arthroplasty, bilateral Social History Tobacco Use Types Packs/Day Years [...] documented as of this encounter Results * XR PELVIS 3+ VW (03/31/2019 9:47 AM PLODDING OPERATOR) Anatomical Region Laterality Modality Pelvis Computed Radiogr aphy Narrative 04/29/2019 8:55 AM PLODDING OPERATOR AP and frogleg views of the bilateral operative hip/s reveal evidence of [place] total hip arthroplasty/ies components in good position with no evidence of loosening. The femoral component/s are not cemented. The femoral head/s is/are nicely centered in the acetabulum. There is no evidence of tumor or fracture. us Tyrel Carrillo PA-C DIAGNOSTIC IMAGING ORDERABLE S Final Result documented in this encounter Visit Diagnoses Diagnosis H/O total replacement of right hip 03-30-2015 History of total left hip replacement 2016 Hx of total hip arthroplasty, bilateral H/O total replacement of right hip 03-30-2015 History of total left hip replacement 2016 Hx of total hip arthroplasty, bilateral documented in this encounter Care Teams Under Cutting Machine Operator Relationship Specialty Start Date End Date Concepción Douglas DO [address] [place] [address] PCP - General Family Practice 04/21/15 08/09/20 documented as of this encounter
--- OUTSIDE RECORDS SUMMARY | 2025-01-12 11:57 | XMS_ITS | Encounter Summary ---
Author Organization [facility] Address [address] [place] [address] Care Team Providers Care Clarity Developer Name Role Phone Concepción Douglas Sunny BARBA Primary Care Provider Encounter Details Date Type Department Care Team (Latest Contact Info) Description 04/02/2017 Ancillary Orders [facility] Orthopedics - Orthopedic [facility] [address] [place] [address] Aneudy Walters MD NO ADDRESS ON FILE Primary osteoarthritis of both hips Social History Tobacco Use Types Packs/Day Years [...] encounter Results * XR PELVIS 3+ VW (04/02/2017 10:11 AM AUTO BUMPER STRAIGHTENER) Anatomical Region Laterality Modality Pelvis Computed Radiogr aphy Narrative 04/04/2017 2:18 PM AUTO BUMPER STRAIGHTENER AP and frogleg views of the bilateral operative hips reveal evidence of total hip arthroplasty components in good position with no evidence of loosening. The femoral component is not cemented. The femoral head is nicely centered in the acetabulum. There is no evidence of tumor or fracture. us Aneudy Walters MD DIAGNOSTIC IMAGING ORDERAB LES Final Result documented in this encounter Visit Diagnoses Diagnosis Primary osteoarthritis of both hips Primary localized osteoarthrosis, pelvic region and thigh Primary osteoarthritis of both hips Primary localized osteoarthrosis, pelvic region and thigh documented in this encounter Care Teams Clarity Developer Relationship Specialty Start Date End Date Concepción Douglas DO [address] [place] [address] PCP - General Family Practice 04/21/15 08/09/20 documented as of this encounter
--- OUTSIDE RECORDS SUMMARY | 2025-01-12 11:57 | XMS_ITS | Clinical Summary ---
Author Organization [facility] Address [address] [place] [address] Care Team Providers Care Asset Protection Lead Name Role Phone Unavailable Primary Care Provider Unavailabl e Allergies Active Allergy Reactions Criticality Noted Date Comments Atorvastatin Muscle Pain Low 02/03/2015 Oxycodone Constipation Low 05/18/2015 Medications loratadine (CLARITIN) 10 mg tablet Take 10 mg by mouth 1 time daily as needed for Allergies. Active latanoprost (XALATAN) 0.005 % solution Administer 1 Drop in both eyes daily at bedtime. Active mxnskowb-zny-jmdjq -vit K-lycop (ONE-A-DAY MEN'S 50 PLUS) 400-20-370 mcg Tablet Take 1 Tablet by mouth daily. Active Cholecalciferol, Vitamin D3, 2,000 unit Capsule Take 2,000 Int'l Units/day by mouth daily. Active DM/p-ephed/acetami noph/doxylam (NYQUIL ORAL) Take by mouth. A ctive acetaminophen (TYLENOL) 325 mg tablet Take 325 mg by mouth every 6 hours as needed. Active simvastatin (ZOCOR) 5 mg tabletIndications: Mixed hyperlipidemia Take 1 Tablet (5 mg) by mouth daily with supper. 30 Tablet 2 0 Active ALPRAZolam (Xanax) 0.25 mg tabletIndications: Situational anxiety Take 1 Tablet (0.25 mg) by mouth 2 times daily as needed for Anxiety. 30 Tablet 1 0 Active hydroCHLOROthiazid e (HYDRODIURIL) 12.5 mg tabletIndications: Bilateral lower extremity edema TAKE 1 TABLET DAILY 90 Tablet 1 0 Active Active Problems Problem Noted Date Diagnosed Date Acute appendicitis with perf oration and localized peritonitis, without abscess or gangrene 05/31/2019 Status post total hip replacement, left 03/31/20 19 Vitamin D deficiency 07/02/2017 Status post total replacement of right hip 03-3007/21/2015 Bilateral hydronephrosis (moderate) 04/08/2015 Bilateral lower extremity edema 04/08/2015 Chronic idiopathic constipation 04/08/2015 History of basal cell cancer Overview (03/19/2015): skin under rt eye per pt 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 Overview (09/10/2015): urinary retention Mixed hyperlipidemia Resolved Problems Problem Noted Date Diagnosed Date Resolved Date Primary osteoarthritis of both hips 12/13/2015 04/01/2018 Acute urinary retention 04/08/201507/13 Immunizations Immunization Administration Dates Next Due (ADACEL/BOOSTRIX)(10 [...] 03/19/1970 Smokeless Tobacco: Former Snuff Quit: 03/19/1970 Tobacco Cessation:Counseling Given: Yes Comments:dipped for less than one yr Alcohol Use Standard Drinks/Week Comments No 0 (1 standard drink = 0.6 oz pur e alcohol) Sex and Gender Information Value Date Recorded Sex Assigned at Not on file Legal Sex Male 1:25 PM CDT Gender Identity Not on file Sexual Orientation Not on file Last Filed Vital Signs Vital Sign Reading Time Taken Comments Blood Pressure 126/74 09/30/2019 8:29 AM CDT Pulse 82 09/30/2019 8:29 AM CDT Temperature 35.6 C (96 F) 09/30/2019 8:29 AM CDT Respiratory Rate 20 07/07/2019 8:41 AM INTEGRATED SPECIALIST Oxygen Saturation 97% 09/30/2019 8:29 AM CDT Inhaled Oxygen Concentration - - Weight 90.1 kg (198 lb 9.6 oz) 09/30/2019 8:29 A M CDT Height 180.3 cm (5' 11 ) 09/30/2019 8:29 AM CDT Body Mass Index 27.7 09/30/2019 8:29 AM CDT Plan of Treatment Health Maintenance Due Date Last Done Comments ZOSTER VACCINE (1 of 2) 1986 RSV VACCINE (60+ or ) (1 - 1-dose 75+ series) 2011 PNEUMOCOCCAL VACCINE 50+ YEA RS (2 of 2 - PCV20 or PCV21) 02/04/2016 02/03/2015, 01/06/2015 DTAP/TDAP/TD VACCINES (2 - T d or Tdap) 12/26/2020 12/26/2010 INFLUENZA VACCINE (#1) 2024 9, 03/01/2018, 03/09/2017, Additional history exists Medical Devices Implanted Type Area Proposal Development Manager Device Identifier Shelf Expiration Date Model / Serial / Lot Plug Hole Damari 9772-9264-1 - [id number] Implanted:Qty: 1 on 03/30/2015 by Aneudy Walters MD at [facility] Hip Right: Hip [employer] 03/15/202020591213-3241 -1 / / [id number] Shell Trdnt [facility] 502-11-58f - [id number] Implanted:Qty: 1 on 03/30/2015 by Aneudy Walters MD at [facility] Hip Right: Hip [employer] 08/12/2019 502-11-58 F / / [id number] Liner Trdnt X3 Poly 0d 623-0036f - [id number] Implanted:Qty: 1 on 03/30/2015 by Aneudy Walters MD at [facility] Hip Right: Hip [employer] 01/26/2020 623-00-36 F / / [id number] Stem Fem Accld Ii 127d Sz7 [id number] - [id number] Implanted:Qty: 1 on 03/30/2015 by Aneudy Walters MD at [facility] Hip Right: Hip [employer] 09/11/2019 0127-4396 / / [id number] Head Fem V40 Tpr Lfit 6260-9-136 - [id number] Implanted:Qty: 1 on 03/30/2015 by Aneudy Walters MD at [facility] Hip Right: Hip [employer] 01/27/2020 6260-9-13 6 / / [id number] Liner Trdnt X3 Poly 0d 623-0036f - [id number] Implanted:Qty: 1 on 09/30/2015 by Aneudy Walters MD at [facility] Hip Left: Hip [employer] [id number] 07/07/2020 62300-36 F / / [id number] Stem Fem Accld Ii 127d Sz7 1296-4375 - [id number] Implanted:Qty: 1 on 09/30/2015 by Aneudy Walters MD at [facility] Hip Left: Hip [employer] [id number] 07/04/2020 6944-4547 / / [id number] Head Fem V40 Tpr Lfit 6260-9-136 - [id number] Implanted:Qty: 1 on 09/30/2015 by Aneudy Walters MD at [facility] Hip Left: Hip [employer] 05/13/2018 6260-9-13 6 / / [id number] Plug Hole Dome 9781-9516-1 - [id number] Implanted:Qty: 1 on 09/30/2015 by Aneudy Walters MD at [facility] Hip Left: Hip [employer] [id number] 08/28/20201136-2979 -1 / / [id number] Shell Trdnt [place] Multi 502-11-58f - [id number] Implanted:Qty: 1 on 09/30/2015 by Aneudy Walters MD at [facility] Hip Left: Hip [employer] [id number] 06/14/2020 502-11-58 F / / [id number] Screw Canc 6.5x25mm - [id number] Implanted:Qty: 1 on 03/30/2015 by Aneudy Walters MD at [facility] Screw Right: Hip [employer] 02/01/202020297365-0615 -1 / / [id number] Screw Canc 6.5x25mm - [id number] Implanted:Qty: 1 on 09/30/2015 by Aneudy Walters MD at 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
[2025-01-12 12:08] VITALS: BP 162/76; PULSE 88; RESP 16; TEMP 36.9; O2SAT 94; BMI 27.2
--- NOTE | 2025-01-12 12:10 | CTR_ITS ---
PROCEDURE INFORMATION: Exam: CT Head Without Contrast Exam date and time: 01/12/2025 12:22 PM Age: 89 years old Clinical indication: Injury or trauma; Concussion/head injury and laceration; Without residual foreign body; Head, generalized; Injury details: Fall, hit posterior aspect of head, lac TECHNIQUE: Imaging protocol: Computed tomography of the head without contrast. Radiation optimization: All CT scans at this facility use at least one of these dose optimization techniques: automated exposure control; mA and/or kV adjustment per patient size (includes targeted exams where dose is matched to clinical indication); or iterative reconstruction. COMPARISON: CT head wo con* [id number] 10/05/2023 11:30 AM RADIATION DOSE METRICS: Total DLP (mGy-cm): 1082.95 FINDINGS: Brain: No intracranial hemorrhage. There is global parenchymal volume loss. Periventricular white matter hypoattenuation is nonspecific but most likely due to small vessel disease. No evidence of acute territorial infarct or cerebral edema. No mass effect or midline shift. Cerebral ventricles: Prominent ventricles likely secondary to volume loss. Paranasal sinuses: Mild diffuse paranasal sinus mucosal thickening. Mastoid air cells: Visualized mastoid air cells are well aerated. Bones: Unremarkable. No acute fracture. Soft tissues: Unremarkable. CT/CT head wo con* [id number] IMPRESSION: No acute intracranial findings.
--- NOTE | 2025-01-12 12:11 | W.ED.FALL ---
HPI - Fall General: Chief Complaint: Fall Stated Complaint: fall Time Seen by Provider: 01/12/25 11:53 Source: patient Mode of arrival: ambulatory Limitations: no limitations History of Present Illness: 89-year-old male states that he was clearing out brush and tripped and fell onto the ground. States he did hit the back of his head does have a laceration to head he denies any severe headache or loss of consciousness he has some abrasions to his forearm but denies any arm pain he has been ambulatory after the event. Associated symptoms-after fall: Denies abdominal pain, chest pain, headache(s) or neck pain Related Data Home Medications ?Medication ?Instructions ?Recorded ?Confirmed ezetimibe 10 mg tablet tab PO 03/06/22 11/03/24 Previous Rx's ?Medication ?Instructions ?Recorded mupirocin 2 % topical ointment 1 applic topical BID #22 grams 06/19/22 diclofenac sodium 75 mg 75 mg PO Q12H PRN pain #20 tabs 09/11/24 tablet,delayed release Allergies Allergy/AdvReac Type Severity Reaction Status Date / Time atorvastatin (From Lipitor) Allergy Unknown Verified 11/03/24 09:08 Review of Systems Const: Denies: fever(s), chills, body aches or change in appetite ENMT: Denies: throat pain or dental pain Card: Denies: chest pain Resp: Denies: dyspnea GI: Denies: abdominal pain, nausea, vomiting or diarrhea Musc: Denies: neck pain or back pain Skin/Breast: Denies: rash Neuro: Denies: headache(s) PFS ED PFSH: Social History Smoking and tobacco/nicotine status: never used tobacco/nicotine Physical Exam Const: COMMON NORMALS: no acute distress, patient oriented x3 and healthy appearing HENMT: COMMON NORMALS: normocephalic HEAD & SCALP: normocephalic OTHER: 1 cm laceration to posterior scalp Neck/C-Spine: COMMON NORMALS: full ROM and supple Chest: COMMONS NORMALS: normal inspection of the chest and normal palpation of entire chest wall Resp: COMMON NORMALS: normal respiratory effort, No retractions, No use of accessory muscles and clear to auscultation bilaterally AUSCULTATION: clear to auscultation bilaterally Cardio: COMMON NORMALS: regular rate, regular rhythm and No murmurs present (Cardio) RATE: regular rate RHYTHM: regular rhythm GI: COMMON NORMALS: Normal to inspection, nondistended, normoactive bowel sounds present, Soft to palpation, non-tender and no masses PALPATION: Yes Soft to palpation Extremity: COMMON NORMALS: full ROM NARRATIVE EXTREMITY EXAM: Abrasions noted left forearm no tenderness to touch full range of motion Neuro: COMMON NORMALS: patient oriented x3, moves all extremities and no focal motor deficits Psych: COMMON NORMALS: mental status grossly normal, Normal thought process present and cooperative THOUGHT PROCESS: Normal thought process present Skin: COMMON NORMALS: no rashes or lesions noted GENERAL SKIN EXAM: no rashes or lesions noted Procedures Laceration Laceration 1: Site: scalp Size (cm): 2 Description: linear Depth: simple, single layer Local Anesthetic: lidocaine 1% Amount of anesthesia used (mL): 6 Pre-repair: wound explored and irrigated extensively Skin layer closed with: other (2 anne) Number of sutures: 2 Course Vital Signs: Vital signs: Vital Signs Temperature 98.4 F 01/12/25 12:08 Pulse Rate 81 01/12/25 12:46 Respiratory Rate 16 01/12/25 12:08 Blood Pressure 155/70 01/12/25 12:46 Pulse Oximetry 100 01/12/25 12:46 Oxygen Delivery Me thod Room Air 01/12/25 12:46 MDM - Fall Medical Decision Making Patient presents here after a fall he does have a head laceration head CT here is normal did repair the lack with anne he is to have anne removed in 7 days no other injuries noted he stable for discharge return if worsening. Medical Records I reviewed the patient's medical records. Lab Data Radiology Impressions Head CT 01/12/25 12:10 IMPRESSION: No acute intracranial findings. All radiology interpretation(s) finalized by discharge Discharge Plan Discharge Patient Disposition: Home Clinical Impression: Laceration of head, Fall Condition: Stable Prescriptions: No Action mupirocin 2 % ointment 1 applic topical BID Qty: 22 1RF Rx Instructions: apply to affected area twice daily until healed ezetimibe 10 mg tablet PO diclofenac sodium 75 mg tablet,delayed release (DR/EC) 75 mg PO Q12H PRN (Reason: pain) Qty: 20 0RF Discharge Orders: Discharge ED (Routine); Ordered 01/12/25 Ordered By: Suma Milan Referrals: Manuelito,Joanie, SERVER SOFTWARE ENGINEER [Primary Care Provider, Nurse Practitioner] Discharge Diet: Advance as tolerated Discharge Activity: Resume usual activity Patient Instructions: Staple Care (ED) Activity Restrictions/Additional Instructions: staple removal in 7 days Print Language: Croatian Coding Level of Care Code ED Certified [place] Administrator for Leonela Gonzalez
[2025-01-12] MEDS: tetanus-dipt-pertussis 0.5 mL SDV IM (12:15)
[2025-01-12 12:17] VITALS: BP 145/80; PULSE 80; O2SAT 92
[2025-01-12 12:46] VITALS: BP 155/70; PULSE 81; O2SAT 100
[2025-01-12 13:22] VITALS: BP 158/50; PULSE 76; O2SAT 96
== END 2025-01-12 13:23 | disposition home or self-care (01) ==
PROVIDERS: Emergency Provider Emergency Medicine; PCP Nurse Practitioner Family
DX: S01.01XA Laceration without foreign body of scalp, initial encounter (principal); W01.0XXA Fall on same level from slipping, tripping and stumbling without subsequent striking against object, initial encounter
CPT/HCPCS: 12001; 70450; 90715; 99284; J9999

== ENCOUNTER → 2025-03-02 09:47 | Outpatient (BNVA) | payer MEDICARE, SELFPAY | PROVIDERS: PCP Nurse Practitioner Family; Visit Provider Podiatrist Foot & Ankle Surgery | DX: E11.8 Type 2 diabetes mellitus with unspecified complications (principal); L60.3 Nail dystrophy; L84 Corns and callosities; L60.8 Other nail disorders; I73.9 Peripheral vascular disease, unspecified | CPT/HCPCS: 11056; 11721 ==

== ENCOUNTER → 2025-04-01 09:40 | Outpatient (BNVA) | payer MEDICARE, SELFPAY | PROVIDERS: PCP Nurse Practitioner Family; Visit Provider Nurse Practitioner Family | DX: L81.4 Other melanin hyperpigmentation (principal); L85.3 Xerosis cutis; Z08 Encounter for follow-up examination after completed treatment for malignant neoplasm; Z85.828 Personal history of other malignant neoplasm of skin; D48.5 Neoplasm of uncertain behavior of skin | CPT/HCPCS: 11102; 99213 ==

== ENCOUNTER 2025-04-14 11:26 | Outpatient (CLI) | payer MEDICARE, SELFPAY | END 2025-04-14 11:27 | disposition home or self-care (01) | LOC: SPT 11:26 | PROVIDERS: PCP Nurse Practitioner Family; Visit Provider Podiatrist Foot & Ankle Surgery | DX: Z46.89 Encounter for fitting and adjustment of other specified devices (principal); E11.8 Type 2 diabetes mellitus with unspecified complications; L84 Corns and callosities | CPT/HCPCS: L3030 ==